=== PATIENT | male | born 1985 | race Caucasian/White ===

== ENCOUNTER 2018-05-28 08:35 | Emergency (ER) | payer MEDICAID, OTHER ==
[~2018-05-28] VITALS: Ht 175.3 cm; Wt 61.0 kg
[~2018-05-28 08:35] MED LIST: DEXL60CA3 PO; DIAZ5TAB PO; DIVA500T2 PO; IBUP-1986 PO; ONDA4TAB6 PO
[2018-05-28] MEDS ORDERED: magnesium 1gm/100ml D5W IVPB 100 ML IV ONE (08:45)
[2018-05-28] MEDS ORDERED: ondansetron/PF 4mg/2ml inj IV ONE (08:45)
[2018-05-28] MEDS ORDERED: normal saline 1000ML IV soln IVB ONE (08:45)
[2018-05-28] MEDS ORDERED: proCHLORperazine 10 MG/2 ml inj IV ONE (09:20)
[2018-05-28] MEDS ORDERED: LORazepam 2 mg/ml vial IV ONE (09:20)
[2018-05-28 09:53] LABS: CLARITY,URINE CLOUDY (Clear); COLOR,URINE YELLOW (Yellow); GLUCOSE, URINE NEGATIVE (Neg); KETONES,URINE TRACE mg/dl (Neg); LEUKOCYTE ESTERASE ,URINE NEGATIVE (Neg); NITRITES, URINE NEGATIVE (Neg); OCCULT BLOOD,URINE TRACE-INTACT (Neg); PROTEIN,URINE 30 mg/dl (Neg); UROBILINOGEN,URINE 0.2 E.U/dL (0.2-1.0)
[2018-05-28 09:54] LABS: UA COLLECTION TYPE FOLEY CATH
[2018-05-28 09:55] LABS: ALANINE AMINOTRANSFERASE 22 U/L (12-78); ALBUMIN 3.7 G/DL (3.4-5.0); ALBUMIN/GLOBULIN RATIO 1.1 (1.1-1.5); ALKALINE PHOSPHATASE 43 IU/L (46-116); ANION GAP 14 (8-16); ASPARTATE AMINO TRANSFERASE 7 U/L (10-37); BILIRUBIN,TOTAL 0.8 MG/DL (0.1-1.0); BLOOD UREA NITROGEN 12 MG/DL (7-18); CHLORIDE 107 MMOL/L (99-107); CREATINE KINASE 163 U/L (39-308); ETHANOL < 0.010 GM/DL (0.0-0.010); GLUCOSE 133 MG/DL (70-104); POTASSIUM 3.9 MMOL/L (3.5-5.1); SODIUM 141 MMOL/L (135-145); TOTAL CARBON DIOXIDE 20.5 MMOL/L (24-32)
[2018-05-28 09:59] LABS: BUN/CREATININE RATIO 10.2 (5.4-32.0); CREATININE 1.18 MG/DL (0.60-1.10); eGFR 71 ML/MIN
[2018-05-28 10:03] LABS: AMORPHOUS URATES 3+; BACTERIA,URINE FEW /HPF (Neg); MUCUS STRANDS FEW /LPF (Neg); RBC,URINE 0-2 /HPF (0-2); SQUAMOUS EPITHELIAL CELL,UR FEW /LPF (FEW); WBC,URINE 0-4 /HPF (0-4)
[2018-05-28 10:06] LABS: BASOPHILS % (AUTO) 0.1 % (0-1); EOSINOPHILS # (AUTO) 0.2 X10'3 (0-0.9); EOSINOPHILS % (AUTO) 1.4 % (0-6); HEMATOCRIT 42.7 % (42.0-52.0); HEMOGLOBIN 14.3 g/dl (14.0-17.9); LYMPHOCYTES # (AUTO) 0.8 X10'3 (1.1-4.8); LYMPHOCYTES % (AUTO) 6.6 % (21-51); MEAN CORPUSCULAR HEMOGLOBIN 29.2 PG (27.0-31.0); MEAN CORPUSCULAR HGB CONC 33.4 % (33.0-36.5); MEAN CORPUSCULAR VOLUME 87.5 FL (78-98); MEAN PLATELET VOLUME 8.3 FL (7.4-10.4); MONOCYTES # (AUTO) 0.6 X10'3 (0-0.9); MONOCYTES % (AUTO) 5.5 % (2-12); NEUTROPHILS % (AUTO) 86.4 % (42-75); PLATELET COUNT 252 X10'3 (140-440); RED BLOOD COUNT 4.88 X10'6 (4.70-6.10); RED CELL DISTRIBUTION WIDTH 14.4 % (11.5-14.5); WHITE BLOOD COUNT 11.6 X10'3 (4.5-11.0)
[2018-05-28 10:26] LABS: URINE AMPHETAMINE SCREEN NEGATIVE (Neg); URINE BARBITUATE SCREEN NEGATIVE (Neg); URINE BENZODIAZEPINES SCREEN POSITIVE (Neg); URINE CANNABINOID SCREEN POSITIVE (Neg); URINE COCAINE SCREEN NEGATIVE (Neg); URINE METHADONE SCREEN NEGATIVE (Neg); URINE OPIATE SCREEN NEGATIVE (Neg); URINE PHENCYCLIDINE SCREEN NEGATIVE (Neg)
[2018-05-28 14:25] VITALS: BP 127/72
== END 2018-05-28 14:26 | disposition home or self-care (01) ==
LOC: ER 08:35
DX: G40.909 Epilepsy, unspecified, not intractable, without status epilepticus (principal); R41.0 Disorientation, unspecified; R11.10 Vomiting, unspecified; F12.90 Cannabis use, unspecified, uncomplicated; E11.9 Type 2 diabetes mellitus without complications; Z88.8 Allergy status to other drugs, medicaments and biological substances; Z79.899 Other long term (current) drug therapy
CPT/HCPCS: 36415; 70450; 71045; 80053; 80305; 80320; 81001; 82140; 82550; 85025; 93005; 96365; 96375; 99285; A4353; J0780; J2060; J2405; J7030

== ENCOUNTER 2018-10-21 23:39 | Inpatient (IN) | payer OTHER | END 2018-10-23 15:46 | disposition home or self-care (01) | LOC: ER 23:39 → ED HOLD 10-22 03:09 → CICU 2S 10-22 04:00 ==

== ENCOUNTER 2023-02-28 11:38 | Emergency (ER) | payer MEDICAID ==
[~2023-02-28] VITALS: Ht 184.2 cm; Wt 90.0 kg
[~2023-02-28 11:38] MED LIST changes: -DEXL60CA3 PO; -DIAZ5TAB PO; -DIVA500T2 PO; -IBUP-1986 PO; +NO HOME MEDS; -ONDA4TAB6 PO
[2023-02-28] MEDS ORDERED: normal saline 1000ML IV soln IVB ONE (12:00)
[2023-02-28 12:39] LABS: BASOPHILS % (AUTO) 0.2 % (0-1); EOSINOPHILS % (AUTO) 0 % (0-6); HEMOGLOBIN 15.5 g/dl (14.0-17.9); LYMPHOCYTES % (AUTO) 7.4 % (21-51); MEAN CORPUSCULAR HEMOGLOBIN 30.3 PG (27.0-31.0); MEAN CORPUSCULAR HGB CONC 32.3 g/dL (33.0-36.5); MEAN CORPUSCULAR VOLUME 93.9 FL (78-98); MEAN PLATELET VOLUME 8.6 FL (7.4-10.4); MONOCYTES # (AUTO) 0.5 X10'3 (0-0.9); MONOCYTES % (AUTO) 3.9 % (2-12); NEUTROPHILS # (AUTO) 11.9 X10'3 (1.8-7.7); NEUTROPHILS % (AUTO) 88.5 % (42-75); PLATELET COUNT 282 X10'3 (140-440); RED BLOOD COUNT 5.11 X10'6 (4.70-6.10); RED CELL DISTRIBUTION WIDTH 15.1 % (11.5-14.5); WHITE BLOOD COUNT 13.4 X10'3 (4.5-11.0)
[2023-02-28 12:52] LABS: ALANINE AMINOTRANSFERASE 28 U/L (12-78); ALBUMIN 4.5 G/DL (3.4-5.0); ALBUMIN/GLOBULIN RATIO 1.3 (1.1-1.5); ALKALINE PHOSPHATASE 56 IU/L (46-116); ANION GAP 14 (8-16); ASPARTATE AMINO TRANSFERASE 20 U/L (10-37); BILIRUBIN,TOTAL 0.5 MG/DL (0.1-1.0); BLOOD UREA NITROGEN 11 MG/DL (7-18); BUN/CREATININE RATIO 8.3 (10.0-20.0); CHLORIDE 103 MMOL/L (99-107); CREATININE 1.32 MG/DL (0.60-1.10); ETHANOL < 0.010 GM/DL (0.0-0.010); GLUCOSE 126 MG/DL (70-104); POTASSIUM 4.1 MMOL/L (3.5-5.1); SODIUM 138 MMOL/L (135-145); TOTAL CARBON DIOXIDE 20.8 MMOL/L (24-32); TOTAL PROTEIN 8.1 G/DL (6.4-8.2); eGFR 60 ML/MIN
--- NOTE | 2023-02-28 12:56 | NUR ---
2nd reminder for patient to give urine sample, still refusing IV at this time. reminded patient to keep on SPO2 monitoring.
[2023-02-28] MEDS ORDERED: ketorolac trometh. 30mg/ml inj. IM ONE (13:15)
[2023-02-28] MEDS ORDERED: LORazepam 2 mg/ml vial IM ONE (13:15)
[2023-02-28] MEDS ORDERED: LORazepam 2 mg/ml vial ONE (13:30)
[2023-02-28] MEDS ORDERED: LORazepam 2 mg/ml vial IV ONE ×2 (13:31→14:00)
[2023-02-28] MEDS: levetiracetam 250mg tablet PO ONE ×2 (13:48→13:49)
[2023-02-28] MEDS ORDERED: levetiracetam inj 1,000 MG in normal saline 100ml IV soln 90 ML IV ONE (13:50)
[2023-02-28 13:51] LABS: URINE AMPHETAMINE SCREEN NEGATIVE (Neg); URINE BARBITUATE SCREEN NEGATIVE (Neg); URINE BENZODIAZEPINES SCREEN NEGATIVE (Neg); URINE CANNABINOID SCREEN POSITIVE (Neg); URINE COCAINE SCREEN NEGATIVE (Neg); URINE METHADONE SCREEN NEGATIVE (Neg); URINE OPIATE SCREEN NEGATIVE (Neg); URINE PHENCYCLIDINE SCREEN NEGATIVE (Neg)
[2023-02-28] MEDS ORDERED: levetiracetam inj 1,000 MG in normal saline 100ml IV soln 100 ML IV ONE (13:52)
[2023-02-28 13:58] LABS: PHENYTOIN (DILANTIN) < 0.5 UG/ML (10.0-20.0)
[2023-02-28] MEDS ORDERED: FOSphenytoin 500mg inj. 1,000 MG in normal saline 100ml IV soln 80 ML IV ONE (14:55)
[2023-02-28] MEDS ORDERED: phenytoin sod inj 1,000 MG in normal saline 100ml IV soln 80 ML IV ONE (15:30)
--- NOTE | 2023-02-28 16:22 | NUR ---
Lizzie Spears [phone]
--- NOTE | 2023-02-28 16:33 | NUR ---
Gamal notified of patient discharge, will arrive in 20 minutes
[2023-02-28 17:20] VITALS: BP 111/62
== END 2023-02-28 17:26 | disposition home or self-care (01) ==
LOC: ER 11:39
DX: G40.909 Epilepsy, unspecified, not intractable, without status epilepticus (principal); F12.90 Cannabis use, unspecified, uncomplicated; Z88.8 Allergy status to other drugs, medicaments and biological substances
CPT/HCPCS: 36415; 71045; 80053; 80185; 80305; 80320; 85025; 96365; 96367; 96372; 96375; 99284; J1165; J1953; J2060; J3490; J7030

== ENCOUNTER 2023-11-14 11:39 | Emergency (ER) | payer MEDICAID ==
[~2023-11-14] VITALS: Ht 172.7 cm; Wt 64.0 kg
[~2023-11-14 11:39] MED LIST changes: +LEVE10002 PO; -NO HOME MEDS; +PHEN100C12 PO
[2023-11-14 11:46] VITALS: PULSE 91; RESP 18; TEMP 98; O2SAT 95
== END 2023-11-14 15:33 | disposition left against medical advice (07) ==
LOC: ER 11:40
DX: R56.9 Unspecified convulsions (principal); Z53.21 Procedure and treatment not carried out due to patient leaving prior to being seen by health care provider
CPT/HCPCS: 99281; J7030

== ENCOUNTER 2024-11-06 12:23 | Inpatient (IN) | payer MEDICAID ==
[~2024-11-06] VITALS: Ht 182.9 cm; Wt 70.4 kg
[~2024-11-06 12:23] MED LIST changes: +PHEN-403 PO; -PHEN100C12 PO
[2024-11-06] MEDS ORDERED: levetiracetam inj 1,500 MG in normal saline 100ml IV soln 100 ML IV STA (13:24)
[2024-11-06] MEDS: LORazepam 2 mg/ml vial IV ONE (13:40)
[2024-11-06] MEDS: normal saline 1000ML IV soln IVB ONE (13:40)
[2024-11-06] MEDS: levetiracetamNACL 1500mg/100mL 100 ML IV STA (13:43)
[2024-11-06 14:38] LABS: ALANINE AMINOTRANSFERASE 20 U/L (12-78); ALBUMIN 4.1 G/DL (3.4-5.0); ALBUMIN/GLOBULIN RATIO 1.2 (1.1-1.5); ALKALINE PHOSPHATASE 57 IU/L (46-116); ANION GAP 13 (8-16); ASPARTATE AMINO TRANSFERASE 13 U/L (10-37); BILIRUBIN,TOTAL 0.7 MG/DL (0.1-1.0); BLOOD UREA NITROGEN 12 MG/DL (7-18); BUN/CREATININE RATIO 10.5 (10.0-20.0); CALCIUM 9.4 MG/DL (8.5-10.1); CHLORIDE 104 MMOL/L (99-107); CREATININE 1.14 MG/DL (0.60-1.10); GLUCOSE 95 MG/DL (70-104); POTASSIUM 3.6 MMOL/L (3.5-5.1); SODIUM 139 MMOL/L (135-145); TOTAL CARBON DIOXIDE 21.8 MMOL/L (24-32); TOTAL PROTEIN 7.4 G/DL (6.4-8.2); eGFR 71 ML/MIN
[2024-11-06 14:49] LABS: CREATINE KINASE 133 U/L (39-308); MAGNESIUM 1.9 MG/DL (1.5-2.4)
[2024-11-06 14:54] LABS: BASOPHILS % (AUTO) 0.3 % (0-1); EOSINOPHILS % (AUTO) 0.1 % (0-6); HEMATOCRIT 43.1 % (42.0-52.0); HEMOGLOBIN 14.3 g/dl (14.0-17.9); LYMPHOCYTES # (AUTO) 0.2 X10'3 (1.1-4.8); LYMPHOCYTES % (AUTO) 3.7 % (21-51); MEAN CORPUSCULAR HEMOGLOBIN 30.5 PG (27.0-31.0); MEAN CORPUSCULAR HGB CONC 33.1 g/dL (33.0-36.5); MEAN CORPUSCULAR VOLUME 92.2 FL (78-98); MEAN PLATELET VOLUME 8.9 FL (7.4-10.4); MONOCYTES # (AUTO) 0.8 X10'3 (0-0.9); MONOCYTES % (AUTO) 13.6 % (2-12); NEUTROPHILS # (AUTO) 4.6 X10'3 (1.8-7.7); NEUTROPHILS % (AUTO) 82.3 % (42-75); PLATELET COUNT 182 X10'3 (140-440); RED BLOOD COUNT 4.68 X10'6 (4.70-6.10); RED CELL DISTRIBUTION WIDTH 14.1 % (11.5-14.5); WHITE BLOOD COUNT 5.6 X10'3 (4.5-11.0)
[2024-11-06 14:56] LABS: ETHANOL < 10 MG/DL (<10)
[2024-11-06 15:18] LABS: URINE AMPHETAMINE SCREEN NEGATIVE (Neg); URINE BARBITUATE SCREEN NEGATIVE (Neg); URINE BENZODIAZEPINES SCREEN NEGATIVE (Neg); URINE CANNABINOID SCREEN POSITIVE (Neg); URINE COCAINE SCREEN NEGATIVE (Neg); URINE METHADONE SCREEN NEGATIVE (Neg); URINE OPIATE SCREEN NEGATIVE (Neg); URINE PHENCYCLIDINE SCREEN NEGATIVE (Neg)
[2024-11-06] MEDS ORDERED: potassium Cl 20 mEq SR tablet PO PRN ×2 (15:25)
[2024-11-06] MEDS ORDERED: mag hydrox/Alum hydrox/simeth 30ml oral suspension PO PRN (15:25)
[2024-11-06] MEDS ORDERED: magnesium hydroxide 30ml (MOM) UD suspension PO PRN (15:25)
[2024-11-06] MEDS ORDERED: potassium Cl 40MEQ/1/2NS 520ml 520 ML IV PRN (15:25)
[2024-11-06] MEDS ORDERED: LORazepam 2 mg/ml vial IV PRN (15:25)
[2024-11-06] MEDS ORDERED: magnesium sulf-water 2g/50mL 50 ML IV PRN (15:25)
[2024-11-06] MEDS ORDERED: HYDROcodone/acetaminophen 5mg/325mg tablet PO PRN (15:25)
[2024-11-06] MEDS ORDERED: magnesium sulf-water 4G/100mL 100 ML IV PRN (15:25)
[2024-11-06 17:12] LABS: LACTIC SEPSIS 1.7 MMOL/L (0.4-2.0)
[2024-11-06] MEDS: ondansetron/PF 4mg/2ml inj IV PRN (18:46)
[2024-11-06] MEDS: HYDROcodone/acetaminophen 10/325mg tab PO PRN (19:09)
[2024-11-06 19:15] VITALS: BP 110/70; RESP 18; TEMP 101.6; O2SAT 94
[2024-11-06] MEDS: K and/or MAG REPLACEMENT MC SCH (20:00)
[2024-11-06] MEDS: docusate sod 100mg capsule PO SCH (20:00)
[2024-11-06] MEDS: acetaminophen 325mg tablet PO PRN (20:02)
[2024-11-06] MEDS: levetiracetam 250mg tablet PO SCH (20:37)
[2024-11-06] MEDS: normal saline 1000ml 1,000 ML IV SCH (20:37)
[2024-11-06] MEDS: heparin, porcine 5000 units/ml vial SQ SCH (20:38)
[2024-11-06 22:00] VITALS: BP 97/53; RESP 17; TEMP 99.6; O2SAT 99
[2024-11-07] MEDS: acetaminophen 325mg tablet PO PRN (02:23)
[2024-11-07 06:00] VITALS: BP 98/69; PULSE 72; RESP 18; TEMP 99.2; O2SAT 98
[2024-11-07 07:17] LABS: BASOPHILS % (AUTO) 0.2 % (0-1); EOSINOPHILS % (AUTO) 0 % (0-6); HEMATOCRIT 41.9 % (42.0-52.0); HEMOGLOBIN 14.2 g/dl (14.0-17.9); LYMPHOCYTES # (AUTO) 0.9 X10'3 (1.1-4.8); LYMPHOCYTES % (AUTO) 23.1 % (21-51); MEAN CORPUSCULAR HEMOGLOBIN 30.8 PG (27.0-31.0); MEAN CORPUSCULAR HGB CONC 33.8 g/dL (33.0-36.5); MEAN CORPUSCULAR VOLUME 91.2 FL (78-98); MEAN PLATELET VOLUME 8.9 FL (7.4-10.4); MONOCYTES # (AUTO) 0.9 X10'3 (0-0.9); MONOCYTES % (AUTO) 22.7 % (2-12); PLATELET COUNT 184 X10'3 (140-440); RED CELL DISTRIBUTION WIDTH 14.2 % (11.5-14.5); WHITE BLOOD COUNT 3.8 X10'3 (4.5-11.0)
[2024-11-07 07:40] LABS: ALANINE AMINOTRANSFERASE 19 U/L (12-78); ALBUMIN 3.6 G/DL (3.4-5.0); ALBUMIN/GLOBULIN RATIO 1.1 (1.1-1.5); ALKALINE PHOSPHATASE 52 IU/L (46-116); ANION GAP 11 (8-16); ASPARTATE AMINO TRANSFERASE 20 U/L (10-37); BILIRUBIN,TOTAL 0.6 MG/DL (0.1-1.0); BLOOD UREA NITROGEN 9 MG/DL (7-18); BUN/CREATININE RATIO 7.8 (10.0-20.0); CALCIUM 8.5 MG/DL (8.5-10.1); CHLORIDE 105 MMOL/L (99-107); CREATININE 1.15 MG/DL (0.60-1.10); GLUCOSE 93 MG/DL (70-104); MAGNESIUM 1.8 MG/DL (1.5-2.4); POTASSIUM 3.5 MMOL/L (3.5-5.1); SODIUM 138 MMOL/L (135-145); TOTAL CARBON DIOXIDE 21.8 MMOL/L (24-32); TOTAL PROTEIN 6.9 G/DL (6.4-8.2); eCRCL 84 ML/MIN; eGFR 70 ML/MIN
[2024-11-07 08:32] LABS: PLATELET ESTIMATE NORMAL; TOTAL CELLS COUNTED 100
[2024-11-07 10:00] VITALS: BP 100/68; PULSE 68; RESP 9; TEMP 98.8; O2SAT 98
[2024-11-07] MEDS: valproic acid 250mg capsule PO ONE (10:41)
[2024-11-07 10:54] LABS: FREE T4 (FREE THYROXINE) 1.01 NG/DL (0.73-1.40)
[2024-11-07 10:57] LABS: THYROID STIMULATING HORMONE 0.45 ulU/ml (0.34-4.50)
[2024-11-07] MEDS: valproic acid 250mg capsule PO SCH (16:30)
[2024-11-07 18:30] VITALS: BP 122/79; PULSE 71; RESP 16; TEMP 99.5; O2SAT 98
[2024-11-07 22:00] VITALS: BP 97/63; PULSE 68; RESP 19; TEMP 98.3; O2SAT 93
[2024-11-08 06:00] VITALS: BP 123/69; PULSE 76; RESP 18; TEMP 98.4; O2SAT 91
[2024-11-08 06:31] LABS: HEMOGLOBIN 14.9 g/dl (14.0-17.9); LYMPHOCYTES % (AUTO) 39.2 % (21-51); MEAN CORPUSCULAR HEMOGLOBIN 30.8 PG (27.0-31.0); MONOCYTES # (AUTO) 0.5 X10'3 (0-0.9); NEUTROPHILS # (AUTO) 1.6 X10'3 (1.8-7.7); RED BLOOD COUNT 4.83 X10'6 (4.70-6.10)
[2024-11-08 06:35] LABS: BASOPHILS % (AUTO) 0.6 % (0-1); EOSINOPHILS % (AUTO) 0.1 % (0-6); HEMATOCRIT 44.1 % (42.0-52.0); LYMPHOCYTES # (AUTO) 1.3 X10'3 (1.1-4.8); MEAN CORPUSCULAR HGB CONC 33.7 g/dL (33.0-36.5); MEAN CORPUSCULAR VOLUME 91.3 FL (78-98); MEAN PLATELET VOLUME 8.9 FL (7.4-10.4); MONOCYTES % (AUTO) 13.9 % (2-12); NEUTROPHILS % (AUTO) 46.2 % (42-75); PLATELET COUNT 162 X10'3 (140-440); RED CELL DISTRIBUTION WIDTH 13.9 % (11.5-14.5); WHITE BLOOD COUNT 3.4 X10'3 (4.5-11.0)
[2024-11-08 06:54] LABS: ALANINE AMINOTRANSFERASE 22 U/L (12-78); ALBUMIN 3.4 G/DL (3.4-5.0); ALKALINE PHOSPHATASE 46 IU/L (46-116); ANION GAP 9 (8-16); ASPARTATE AMINO TRANSFERASE 16 U/L (10-37); BILIRUBIN,TOTAL 0.4 MG/DL (0.1-1.0); BLOOD UREA NITROGEN 8 MG/DL (7-18); BUN/CREATININE RATIO 6.5 (10.0-20.0); CALCIUM 8.3 MG/DL (8.5-10.1); CHLORIDE 104 MMOL/L (99-107); CREATININE 1.23 MG/DL (0.60-1.10); GLUCOSE 110 MG/DL (70-104); MAGNESIUM 1.8 MG/DL (1.5-2.4); POTASSIUM 3.6 MMOL/L (3.5-5.1); SODIUM 139 MMOL/L (135-145); TOTAL CARBON DIOXIDE 25.7 MMOL/L (24-32); TOTAL PROTEIN 6.9 G/DL (6.4-8.2); eCRCL 79 ML/MIN; eGFR 65 ML/MIN
[2024-11-08 07:30] VITALS: RESP 18; O2SAT 91
[2024-11-08 10:00] VITALS: BP 102/59; PULSE 53; RESP 14; TEMP 97.9; O2SAT 98
[2024-11-08] MEDS: GADOTERATE MEGLUMINE 7.5 MMOL/15 ML VIAL IV ONE (16:03)
[2024-11-08] MEDS ORDERED: VALP250C44 PO (17:39)
[2024-11-08] MEDS ORDERED: LEVE250T PO (17:39)
== END 2024-11-08 19:14 | disposition home or self-care (01) | DRG 53 ==
LOC: ER 12:25 → ED HOLD 15:32 → ORTHO 4S 19:37
PROVIDERS: ADMIT Nurse Practitioner Family; ATTEND Nurse Practitioner Family
PROC: 4A00X4Z Measurement of Central Nervous Electrical Activity, External Approach (ICD-10-PCS; principal; 2024-11-07)
DX: G40.901 Epilepsy, unspecified, not intractable, with status epilepticus (principal); E11.9 Type 2 diabetes mellitus without complications; F41.0 Panic disorder [episodic paroxysmal anxiety]; Z79.899 Other long term (current) drug therapy; Z88.8 Allergy status to other drugs, medicaments and biological substances
CPT/HCPCS: 36415; 70450; 70553; 71045; 80053; 80177; 80305; 80320; 82140; 82550; 82607; 83605; 83735; 83874; 84145; 84146; 84439; 84443; 85007; 85025; 87081; 95816; 97161; 97530; 99285; A4615; A6250; G0378; J1644; J1953; J2060; J2405; J7030

== ENCOUNTER 2024-12-29 14:17 | Emergency (ER) | payer MEDICAID ==
[~2024-12-29] VITALS: Ht 182.9 cm; Wt 63.1 kg
[~2024-12-29 14:17] MED LIST changes: -LEVE10002 PO; +LEVE250T PO; -PHEN-403 PO; +VALP250C44 PO
[2024-12-29] MEDS ORDERED: LEVE250T PO (15:20)
[2024-12-29] MEDS ORDERED: VALP250C44 PO (15:20)
[2024-12-29] MEDS: levetiracetam 250mg tablet PO ONE (16:25)
[2024-12-29 16:29] VITALS: BP 131/80; PULSE 74; RESP 15; TEMP 97.8; O2SAT 99
== END 2024-12-29 16:34 | disposition home or self-care (01) ==
LOC: ER 14:18
DX: F43.10 Post-traumatic stress disorder, unspecified (principal); Z76.0 Encounter for issue of repeat prescription; E11.9 Type 2 diabetes mellitus without complications; F12.90 Cannabis use, unspecified, uncomplicated
CPT/HCPCS: 99284

== ENCOUNTER 2025-02-14 14:03 | Inpatient (IN) | payer MEDICAID ==
[~2025-02-14] VITALS: Ht 182.9 cm; Wt 66.8 kg
[2025-02-14] MEDS: diazepam inj 5 MG/ML inj. ONE (14:22)
[2025-02-14] MEDS: midazolam 1 mg/ML 2ml injection IV ONE (14:22)
[2025-02-14] MEDS: LORazepam 2 mg/ml vial ONE (14:23)
[2025-02-14] MEDS: LORazepam 2 mg/ml vial IV ONE ×2 (14:24→17:29)
[2025-02-14] MEDS: diazepam inj 5 MG/ML inj. IM ONE (14:24)
[2025-02-14] MEDS: levetiracetam-NACL1000mg/100ml 100 ML IV SCH (14:37)
--- NOTE | 2025-02-14 14:42 | ELECTROCARDIOGRAPH REPORT ---
[facility] Test Date: 2025-02-14 Test Time: 14:34:12 Pat Name: CHINA SANDERS Department: EMERGENCY ROOM Room: ED 3 Gender: M Machine Umbrella Tipper: nohemi : 1985 Requested By: JAMES CAVAZOS Order Number: [id number] Reading MD: Dr. Derek Mishra Measurements Intervals [place] Rate: 147 P: 87 [place]: 130 QRS: 66 QRSD: 84 T: 68 QT: 270 QTc: 423 Interpretive Statements Age not entered, assumed to be 48 years old for purpose of ECG interpretation Sinus tachycardia Ventricular premature complex Probable left atrial enlargement Anteroseptal infarct, old Electronically Signed On 02-14-2025 18:29:[address] Derek Mishra Please click the below link to view image of tracing.
[2025-02-14 14:49] LABS: BASOPHILS # (AUTO) 0.1 X10'3 (0-0.2); BASOPHILS % (AUTO) 0.3 % (0-1); EOSINOPHILS % (AUTO) 0 % (0-6); HEMATOCRIT 49.9 % (42.0-52.0); LYMPHOCYTES # (AUTO) 1.3 X10'3 (1.1-4.8); LYMPHOCYTES % (AUTO) 6.1 % (21-51); MEAN CORPUSCULAR HEMOGLOBIN 30.4 PG (27.0-31.0); MEAN CORPUSCULAR HGB CONC 32.1 g/dL (33.0-36.5); MEAN CORPUSCULAR VOLUME 94.7 FL (78-98); MONOCYTES # (AUTO) 1.2 X10'3 (0-0.9); MONOCYTES % (AUTO) 5.6 % (2-12); NEUTROPHILS # (AUTO) 18.6 X10'3 (1.8-7.7); PLATELET COUNT 381 X10'3 (140-440); RED BLOOD COUNT 5.28 X10'6 (4.70-6.10); RED CELL DISTRIBUTION WIDTH 15.6 % (11.5-14.5); WHITE BLOOD COUNT 21.2 X10'3 (4.5-11.0)
[2025-02-14] MEDS: normal saline 1000ml 1,000 ML IV ONE (15:11)
[2025-02-14] MEDS: ringers solution, lacted 1,000 ML IV ONE (15:11)
[2025-02-14 15:12] LABS: ALANINE AMINOTRANSFERASE 24 U/L (12-78); ALBUMIN 4.8 G/DL (3.4-5.0); ALBUMIN/GLOBULIN RATIO 1.3 (1.1-1.5); ALKALINE PHOSPHATASE 69 IU/L (46-116); ANION GAP 23 (8-16); ASPARTATE AMINO TRANSFERASE 32 U/L (10-37); BILIRUBIN,TOTAL 1.4 MG/DL (0.1-1.0); BLOOD UREA NITROGEN 16 MG/DL (7-18); BUN/CREATININE RATIO 10.1 (10.0-20.0); CALCIUM 10.3 MG/DL (8.5-10.1); CHLORIDE 104 MMOL/L (99-107); CREATININE 1.58 MG/DL (0.60-1.10); GLUCOSE 126 MG/DL (70-104); POTASSIUM 4.8 MMOL/L (3.5-5.1); SODIUM 146 MMOL/L (135-145); TOTAL CARBON DIOXIDE 19.2 MMOL/L (24-32); TOTAL PROTEIN 8.5 G/DL (6.4-8.2); eCRCL 58 ML/MIN; eGFR 49 ML/MIN
--- NOTE | 2025-02-14 15:17 | RADIOLOGY REPORT ---
CHEST RADIOGRAPH Indication: CP Technique: Single frontal view of the chest was obtained Comparison: DI CHEST,SINGLE VIEW on DOS: 11/06/24, DI CHEST,SINGLE VIEW on DOS: 07/30/23, DI CHEST,SIN GLE VIEW on DOS: 07/29/23 FINDINGS: Lines and Tubes: None Lungs: No focal consolidation. Pleura: No effusion. No pneumothorax. Cardiomediastinal contours: Unremarkable Bones: No acute osseous abnormality. IMPRESSION: No acute cardiopulmonary disease.
[2025-02-14 15:19] LABS: CREATINE KINASE 732 U/L (39-308); PRO BRAIN NATRIURETIC PEPTIDE 38 PG/ML (0-125)
[2025-02-14] MEDS: diphenhydrAMINE 50 mg/ml inj IV ONE ×2 (15:43→17:28)
--- NOTE | 2025-02-14 15:52 | Physician Documentation ---
History of Present Illness ~ Chief Complaint: Seizure Stated Complaint: SZ Time Seen by MD: 14:48 OK to notify your PCP?: Yes Primary Medical Doctor: DORIS NOLAN Mode of Arrival: EMS HPI 39-year-old patient with a history of seizure disorder on Keppra was brought to the emergency room by ambulance because of seizure activities no times today at home and then started seizing in the ED. therefore patient was immediately treated with a benzodiazepine. He did not have any IV so we initially given diazepam 10 mg IM and then IV was established and he was given 4 mg of Ativan. Then his seizure broke and he was in deep confused post ictal state. Patient get 1000 g of Keppra intravenously . He also received 4 mg of Versed intravenously and Benadryl 50 mg IV. The story from the EMS is that the patient been compliant with Keppra and antiseizure medication and about 2 to 3 days prior to this ER visit patient has started using mushroom and stopped taking antiseizure medications. Apparently he has must be taking some mushroom. Street mushroom overdose can cause seizure on itself. I reviewed his past medical history in EMR and found that he has been to the emergency room for seizure activities numerous time and at one point of time he got intubated for status epilepticus. Medication Reconciliation Allergies: Coded Allergies: methylphenidate HCl (Verified Allergy, Unknown, "MY GROWTH WAS STUNTED", 12/29/24) Uncoded Allergies: CIG. SMOKE (Allergy, Severe, "ANAPHYLACTIC SHOCK"., 09/13/14) Scheduled Aripiprazole (Aripiprazole), 1 TAB PO HS, (Reported) Levetiracetam (Levetiracetam), 1,000 MG PO TID Discontinued Medications Valproic Acid (Valproic Acid), 500 MG PO Q8H Discontinued Reason: patient no longer taking Past Medical History Past Medical History: Seizures, *GI/HEPATOBILIARY*, Inflammatory Bowel Dz, Diabetes, Panic Disorder Past Surgical History: no surgical history Alcohol Use: Occasionally Drug Use: marijuana Lives with: Family Lives In: Home Occupation: student Review of Systems ROS As stated above in the HPI, otherwise all systems are reviewed and negative. Physical Exam Vital Signs: Source: Oral, Heart Rate: 136, Respiratory Rate: 25, BP: 121/64, Pulse Oximetry: 100, Weight: 66.820 Oxygen Flow Rate: 15.0 Physical Exam Reviewed vital signs and been monitoring vital signs throughout the emergency room care. Patient's heart rate is coming down now to 108 initially he was at 160 sinus tachy. Const: seizing condition as well as Postictal state Head: Atraumatic Eyes: Normal Conjunctiva ENT: Normal External Ears, Nose and Mouth. Moist mucous membranes Neck: Full range of motion. No meningismus Resp: Clear to auscultation bilaterally. Normal work of breathing Cardio: Regular rate and rhythm, no murmurs. Skin well perfused Abd: Soft, non-tender, non-distended. Normal bowel sounds. No rebound or guarding Skin: No petechiae or rashes. Warm and dry Back: No midline or flank tenderness Ext: No cyanosis, or edema Neuro: Postictal Psych: Deferred Progress Results/Orders Results/Orders Orders - JAMES CAVAZOS MD Chest,Single View (02/14/25 14:40) Monitor (02/14/25 14:40) Saline Lock (02/14/25 14:40) Oxygen (02/14/25 14:40) Electrocardiogram (02/14/25 14:40) Non-Behavioral Restraints (02/14/25 14:53) Levetiracetam, S (02/14/25 15:48) Page Hospitalist (02/14/25 16:03) Completed Orders - JAMES CAVAZOS MD Midazolam 1 Mg/Ml 2ml Inj. (Versed 1 Mg/ (02/14/25 14:20) Diazepam Inj (Valium Inj) (02/14/25 14:20) Lorazepam Inj (Ativan Inj) (02/14/25 14:25) Levetiracetam-[id number]/100ml (Levetira (02/14/25 20:00) Levetiracetam-[id number]/100ml (Levetira (02/14/25 14:31) Chest,Single View (02/14/25 14:40) Cbc/Diff (02/14/25 14:40) PBNP (02/14/25 14:40) Electrocardiogram (02/14/25 14:40) CMP (02/14/25 14:40) Hs Troponin I W Calculations (02/14/25 14:40) Hs Troponin I W Calculations (02/14/25 16:40) Hs Troponin I W Calculations (02/14/25 17:40) CK (02/14/25 14:22) Normal Saline 1000ml (Sodium Chloride 10 (02/14/25 15:10) Ringers Solution, Lacted (Lactated Ringe (02/14/25 15:10) Lorazepam Inj (Ativan Inj) (02/14/25 15:20) Diphenhydramine Inj (Benadryl Inj.) (02/14/25 15:40) Levetiracetam-Nacl 500mg/100ml (Levetira (02/14/25 20:00) Drug Screen, Urine (02/14/25 15:54) Normal Saline 1000ml (Sodium Chloride 10 (02/14/25 15:55) Vital Signs 02/14/25 02/14/25 02/14/25 02/14/25 14:12 14:50 15:10 15:23 Pulse 143 133 136 Resp 16 28 25 B/P (MAP) 123/73 156/131 (139) 121/64 (83) Pulse Ox 98 97 99 100 O2 Delivery Non-Rebreather O2 Flow Rate 16 15.0 15.0 FiO2 N/A N/A N/A 02/14/25 02/14/25 16:00 16:00 Pulse 101 Resp 20 21 B/P (MAP) 104/78 (87) Pulse Ox 99 O2 Flow Rate 15.0 FiO2 N/A Laboratory Tests Test 02/14/25 03:19 02/14/25 14:22 Hemoglobin A1c 5.1 White Blood Count 21.2 H Red Blood Count 5.28 Hemoglobin 16.0 Hematocrit 49.9 Mean Corpuscular Volume 94.7 Mean Corpuscular Hemoglobin 30.4 Mean Corpuscular Hemoglobin Concent 32.1 L Red Cell Distribution Width 15.6 H Platelet Count 381 Mean Platelet Volume 9.0 Neutrophils (%) (Auto) 88.0 H Lymphocytes (%) (Auto) 6.1 L Monocytes (%) (Auto) 5.6 Eosinophils (%) (Auto) 0 Basophils (%) (Auto) 0.3 Neutrophils # (Auto) 18.6 H Lymphocytes # (Auto) 1.3 Monocytes # (Auto) 1.2 H Eosinophils # (Auto) 0.0 Basophils # (Auto) 0.1 CBC Comment Sodium Level 146 H Potassium Level 4.8 Chloride Level 104 Carbon Dioxide Level 19.2 L Anion Gap 23 H Blood Urea Nitrogen 16 Creatinine 1.58 H Estimated GFR/1.73 m2 49 BUN/Creatinine Ratio 10.1 Glucose Level 126 H Calcium Level 10.3 H Total Bilirubin 1.4 H Aspartate Amino Transf (AST/SGOT) 32 Alanine Aminotransferase (ALT/SGPT) 24 Alkaline Phosphatase 69 Total Creatine Kinase 732 H Troponin I High Sensitivity 23 Pro-B-Type Natriuretic Peptide 38 Total Protein 8.5 H Albumin 4.8 Globulin 3.7 Albumin/Globulin Ratio 1.3 Chemistry Comments Medical Decision Making Findings Patient was having active tonic-clonic seizure that needs to be immediately treated. Before we got the intravenous access the patient was given diazepam 10 mg IM and after that the patient was given Ativan 4 mg IV and Keppra 1 g IV and then Versed 4 mg IV. Benadryl 50 mg intravenously was given as well. He was hydrated aggressively as well. As we were controlling the seizure activities we are preferred to intubate him should his respiration depressed and unable to bear to protect airway as well as should the seizure does not break and continued. Patient will be admitted to the hospital for further evaluation and treatment. Lab results CBC WBC 21.2 and H and H 16 and 49.9 with platelets 381. Sodium 146 potassium four point eight chloride 104 bicarb 19.4 BUN 16 creatinine 1.58 and glucose 126. CK is 732. Troponin 23 BNP 38. Chest x-ray is unremarkable. EKG done at is 14:34 hours shows sinus tachy at a rate of 147. No ischemic changes. CRITICAL CARE TIME: [50 ] minutes Treatments/Evaluations: Close monitoring and treatment of unstable vital signs, cardiorespiratory, and neurologic status, while maintaining tight balance of fluid, respiratory, and cardiac interventions. This time includes discussing the case with the patient and the patients family. This time does not include all procedures stated elsewhere in this record. This time also includes reviewing old records, labs and radiological studies. This time includes examining and re-examining the patient. Additionally, this time also includes arranging care with admitting and consulting physicians. Departure Disposition: ADMITTED INPATIENT Impression: Primary Impression: Seizure disorder Additional Impression: Substance abuse Referrals: NO PRIMARY CARE PROVIDER (PCP) Signature Scribe Signature: x Attestation: JAMES Hauser MD February 14, 2025 15:52
[2025-02-14] MEDS: normal saline 1000ml 1,000 ML IV SCH (16:22)
[2025-02-14] MEDS: acetaminophen 1,000mg/100ml IV 100 ML IV ONE (16:58)
[2025-02-14 17:14] LABS: BILIRUBIN,URINE NEGATIVE (Neg); CLARITY,URINE CLEAR (Clear); COLOR,URINE YELLOW (Yellow); GLUCOSE, URINE NEGATIVE (Neg); KETONES,URINE TRACE mg/dl (Neg); LEUKOCYTE ESTERASE ,URINE NEGATIVE (Neg); NITRITES, URINE NEGATIVE (Neg); OCCULT BLOOD,URINE SMALL (Neg); PROTEIN,URINE NEGATIVE (Neg); UROBILINOGEN,URINE 0.2 E.U/dL (0.2-1.0)
[2025-02-14 17:20] LABS: UA COLLECTION TYPE VOIDED
[2025-02-14 17:21] LABS: BACTERIA,URINE NONE SEEN /HPF (Neg); MUCUS STRANDS NONE SEEN /LPF (Neg); RBC,URINE 0-2 /HPF (0-2); SQUAMOUS EPITHELIAL CELL,UR NONE SEEN /LPF (FEW); URIC ACID CRYSTALS 2+ /HPF (NEGATIVE); WBC,URINE NONE SEEN /HPF (0-4)
[2025-02-14 17:33] LABS: URINE AMPHETAMINE SCREEN NEGATIVE (Neg); URINE BARBITUATE SCREEN NEGATIVE (Neg); URINE BENZODIAZEPINES SCREEN POSITIVE (Neg); URINE CANNABINOID SCREEN POSITIVE (Neg); URINE COCAINE SCREEN POSITIVE (Neg); URINE METHADONE SCREEN NEGATIVE (Neg); URINE OPIATE SCREEN NEGATIVE (Neg); URINE PHENCYCLIDINE SCREEN NEGATIVE (Neg)
--- NOTE | 2025-02-14 17:41 | HISTORY AND PHYSICAL-Residence ---
History & Physical Providers to CC Resident Creating Document: KARON CHÁVEZ RES ~ History of Present Illness Primary Medical Doctor: DORIS NOLAN Reason for Admit\\Complaint: Seizures History of Present Illness 39-year-old male patient with a past medical history of epilepsy presents to the hospital due to multiple seizures occurring today. Girlfriend at bedside and provided most of the history as the patient was drowsy from the seizures and medical management. Symptoms followed after he went out yesterday, used mushrooms and drank a couple of beers; and also missed his nighttime Keppra. Today morning, he ceased about 5 times since 6:30 a.m. to 1:00 p.m.. Reports of return of consciousness in between the episodes but confusion persisted. Seizures associated with loss of bowel and bladder continence. Girlfriend denies any trauma to the head. He has a prior history of similar breakthrough seizures secondary to alcohol or drugs. As per the girlfriend, he takes 1000 mg Keppra twice a day. Does not have any outpatient neurology follow up. Allergies: Coded Allergies: methylphenidate HCl (Verified Allergy, Unknown, "MY GROWTH WAS STUNTED", 12/29/24) Uncoded Allergies: CIG. SMOKE (Allergy, Severe, "ANAPHYLACTIC SHOCK"., 09/13/14) Home Medications Home Medications Active Valproic Acid 250 Mg Capsule 500 Mg PO Q8H 30 Days Levetiracetam 250 Mg Tablet 1,000 Mg PO TID 30 Days Past Medical History Past Medical History Epilepsy Past Surgical History Surgical History Comment None Past Social History Social History Comment Smokes marijuana. Occasional alcohol use. Lives at home with his girlfriend. Smoking: Non-Smoker Alcohol Use: Occasionally Drug Use: Marijuana Lives with: Family Lives In: Home Occupation: student ROS ROS Unable to be obtained Exam Vitals: Vital Signs Date Time Temp Pulse Resp B/P (MAP) Pulse Ox O2 Delivery O2 Flow Rate FiO2 02/14/25 17:14 100 20 104/78 (87) 99 15.0 02/14/25 16:24 101.1 N/A 02/14/25 14:50 Non-Rebreather General: General: Drowsy, confused and irritable HEENT: Conjunctiva pink, Sclera clear, Mucus Membranes moist. Resp: Unlabored. Lungs clear to auscultation bilaterally. Heart: Sinus tachycardia, normal S1 and S2 without murmur, rub or gallop. Abdomen: Soft and non tender no organomegaly Extremities: No cyanosis,clubbing or edema. Skin: Warm and Dry. Diagnostic Data Last Recorded Lab Results: 02/14/25 1422 02/14/25 1422 Counseling Services Smoking & Tobacco Cessation: N/A Advance Care Planning Advanced Care planning: N/A Additional Plan 1. Seizures: Breakthrough secondary to drug use Unable to evaluate if status epilepticus as duration unrecorded History of epilepsy Metabolic acidosis with elevated anion gap secondary to seizures ER course: 10 mg IM Valium, 4 mg Ativan IV. Seizure broke. IV Keppra to total dose of 1500 mg given. 4 mg IV Versed and Benadryl 50 mg also given to reduce agitation. - continue Keppra 1000 mg b.i.d. -Ativan q.4 PRN; Valium can be used if failure to control with Ativan - tele neurology consult placed; we will await recommendations - urine tox positive for cocaine and cannabis - reactive leukocytosis, and JOSHUA likely secondary to above. Elevated CK, urine color yellow. Mildly elevated lactic acidosis. Continue IV fluid resuscitation - uses marijuana at home which could be protective against seizures; cessation advice not provided - agitation controlled with Benadryl/benzodiazepine - Seizure precautions, fall precautions and aspiration precautions placed - BSS eval for diet 2. JOSHUA: Likely secondary to ATN Urinalysis reveals no RBC or change in color Mildly elevated CK secondary to the seizure activity Continue IV fluid resuscitation at a rate of 200 cc/hour; reduce IV fluids rate tomorrow after repeat labs Continue monitoring urine output 3. Reactive leukocytosis: Febrile episodes secondary to seizure WBC 21.2 Continue IV fluid resuscitation and IV Tylenol p.r.n. q.8 hours for fever Monitor CBC 4. Substance abuse disorder: Urinalysis positive for cocaine Substance abuse navigator consulted Lines: PIV Code status: Full code; unable to receive information from the patient directly Diet: RONALD Chávez PGY2, Internal medicine resident Date of Service: February 14, 2025 Billing Provider: OLMAN AYON MD Common Visit Codes: 06565-CQSIKUE INP/OBS CARE (HIGH) Secondary Visit Codes: 16497-[id number] CARE PLAN 30 MINUTES KARON CHÁVEZ, RES February 14, 2025 17:41 OLMAN AYON MD February 15, 2025 21:00
[2025-02-14] MEDS: CefTRIAXone 2gm/D5W 50ml BAG 50 ML IV ONE (17:47)
[2025-02-14 19:15] VITALS: BP 111/67; PULSE 97; RESP 22; TEMP 99.7; O2SAT 98
[2025-02-14] MEDS ORDERED: levetiracetam-NACL1000mg/100ml 100 ML IV SCH (20:00)
[2025-02-14] MEDS ORDERED: Levetiracetam-NACL 500mg/100ml 100 ML IV ONE (20:00)
[2025-02-14] MEDS ORDERED: ARIP10TA87 PO (20:02)
--- NOTE | 2025-02-14 21:57 | CONSULTATION REPORT ---
History of Present Illness Providers to CC ~ Reason for Admit\\Admit Dx: Seizures Refering MD: PARVEEN/ AN Allergies: Coded Allergies: methylphenidate HCl (Verified Allergy, Unknown, "MY GROWTH WAS STUNTED", 12/29/24) Uncoded Allergies: CIG. SMOKE (Allergy, Severe, "ANAPHYLACTIC SHOCK"., 09/13/14) Home Medications Home Medications Active Levetiracetam 250 Mg Tablet 1,000 Mg PO TID 30 Days Reported Aripiprazole 10 Mg Tablet 1 Tab PO HS Physical Exam Last Vital Signs Recorded: Temperature: 99.7, Source: Axillary, Heart Rate: 97, Respiratory Rate: 22, BP: 111/67, Pulse Oximetry: 98, Weight: 66.820 Results Diagram Lab Result Diagram: 02/14/25 1422 02/14/25 142 Assessment/Plan Additional Plan [place] Neuro Note # Demographics Consult Type: General Neurology Patient Location: Emergency Room First Name: CHINA Last Name: MARILYN Date of : 1985 Age: 39 Gender: Male Facility: [facility] Time of Initial Page ([place] Time): 02/14/2025 17:19 Time of Return Call ([place] Time): 02/14/2025 17:20 # HPI History: 39yo with history of seizures on Keppra and Depakote, stopped his meds a few days ago, then used mushrooms and had a breakthrough seizure. Rec loading with Keppra one gram and restarting his home dose of Keppra and Depakote # Plan Other: - If patient has any neurological deterioration please call back immediately # Demographics First Name: CHINA Last Name: MARILYN Facility: [facility] BONG ELLIS Jr., MD February 14, 2025 21:57
[2025-02-14 22:00] VITALS: BP 106/67; PULSE 96; RESP 16; TEMP 98.8; O2SAT 100
[2025-02-15] MEDS: dextrose 50%-water 50ml dispensing syringe IV ONE (03:22)
[2025-02-15 06:00] VITALS: BP 101/54; PULSE 102; RESP 19; TEMP 99.4; O2SAT 97
[2025-02-15] MEDS: LORazepam 2 mg/ml vial IV PRN (08:13)
[2025-02-15] MEDS: ibuprofen 200mg tablet PO PRN (10:00)
[2025-02-15] MEDS ORDERED: valproic acid 250mg capsule PO SCH (16:00)
--- NOTE | 2025-02-15 16:26 | DISCHARGE SUMMARY-Residence ---
Discharge Summary Providers to CC Resident Creating Document: SAIRAKIRAJASESTELLE BLANK ~ Discharge Summary Admission Diagnosis: Seizures Hospital Course DATE OF ADMISSION: 02/14/2025 DATE OF DISCHARGE: 02/15/2025 ([facility]) Discharge Diagnosis\Comment: Acute breakthrough seizures, PMH of epilepsy Hypoxia induced lactic acidosis Left against medical advice Operations\Procedures: None Consultants: Tele neurology Complications: None Condition on DC: Unstable New Medications: Valproic Acid (Valproic Acid) 250 Mg Capsule 750 MG PO Q8H for 90 Days, #120 CAP Continued Medications: Aripiprazole (Aripiprazole) 10 Mg Tablet 1 TAB PO HS Levetiracetam (Levetiracetam) 250 Mg Tablet 1000 MG PO TID for 30 Days, #90 TAB Discharge Summary: 39-year-old male patient with a past medical history of epilepsy presents to the hospital after suffering from multiple episodes of seizures throughout the day. He had about five episodes of seizure starting from 6:30 a.m. on the day of presentation to 1:00 p.m. with intermittent waking up in between the seizure episodes. As per urinalysis and history, the patient abused alcohol, cocaine and mushrooms the night before along with missing his nighttime Keppra leading to the breakthrough seizure. His initial seizure was relieved by benzos and then he was started on Keppra drip. Review of EMR reveals that the patient was actually discharged on Keppra a 1000 mg t.i.d. which he has been compliant with the but has not taken the valproic acid that he was discharged with. He remained drowsy and confused overnight. Complained of headaches. Around the afternoon time, he was awake, alert and oriented x4 and left AMA. All instructions including risks of seizures, risks of noncompliance with medications and risk of recurrent breakthrough seizures as such. Patient was in full understanding of the condition prior to discharge. Medications at discharge: Valproic acid 750 mg q.8 hours, Keppra 1000 mg t.i.d. Labs at discharge: WBC 21.2, RBC 5.2, platelet 381 Sodium 146, potassium 4.8, chloride 104, BUN 16, creatinine 1.5, blood glucose 126, AST 32, ALT 24, alkaline phosphatase 69 *Problems/Diagnosis: (1) Seizure disorder Status: Acute Total Time Spent on D/C: Up to 30 Minutes Date of Service: February 15, 2025 Billing Provider: OLMAN AYON MD Common Visit Codes: 80891-VMO/OBS DISCH DAY >30min KARON CHÁVEZ, RES February 15, 2025 16:02 OLMAN AYNO MD February 15, 2025 21:01
[2025-02-15] MEDS ORDERED: levetiracetam 250mg tablet PO SCH (21:00)
== END 2025-02-15 12:51 | disposition left against medical advice (07) | DRG 53 ==
LOC: ER 14:04 → ED HOLD 16:22 → ORTHO 4S 19:06
PROVIDERS: ADMIT Internal Medicine; ATTEND Internal Medicine
DX: G40.909 Epilepsy, unspecified, not intractable, without status epilepticus (principal); N17.9 Acute kidney failure, unspecified; E87.20 Acidosis, unspecified; Z53.29 Procedure and treatment not carried out because of patient's decision for other reasons; F14.10 Cocaine abuse, uncomplicated; E11.9 Type 2 diabetes mellitus without complications
CPT/HCPCS: 36415; 71045; 80053; 80177; 80305; 81001; 82550; 82948; 83036; 83605; 83880; 84484; 85025; 87040; 87081; 92508; 92616; 93005; 99291; A4349; C1758; G0378; J0131; J0696; J1200; J1953; J2060; J2250; J3360; J3490; J7030; J7120

== ENCOUNTER 2025-04-19 08:26 | Outpatient (CLI) | payer MEDICAID ==
[~2025-04-19 08:26] MED LIST changes: +ARIP10TA87 PO; -VALP250C44 PO
--- NOTE | 2025-04-19 11:17 | RADIOLOGY REPORT ---
PROCEDURE: MR MRI HEAD INDICATION: EPILEPSY EXAM DATE: 04/19/2025 09:10 AM COMPARISON: MR MRI HEAD on DOS: 11/07/24, CT CT HEAD on DOS: 11/06/24, CT CT HEAD on DOS: 07/27/23 TECHNIQUE: MRI of the brain without intravenous contrast. Seizure protocol. FINDINGS: Diffusion weighted images of the brain demonstrate no evidence of acute infarction. There is no evidence of acute intracranial hemorrhage, extra-axial collection, mass effect, midline s hift, herniation or hydrocephalus. The ventricles, sulci and cisterns appear age appropriate. The signal intensities of the brain parenchyma are within normal limits. There are no signal abnormalities on the susceptibility weighted sequences. The major vascular flow voids are present. The visualized paranasal sinuses and mastoid air cells are clear. The surrounding soft tissues and o sseous structures are unremarkable. IMPRESSION: 1. No evidence of acute infarction, intracranial hemorrhage, mass effect or hydrocephalus. Mesial tem poral sclerosis. HS:Y
== END 2025-04-19 23:59 | disposition home or self-care (01) ==
LOC: MRI02 08:26
PROVIDERS: ATTEND Physician Assistant
DX: G40.909 Epilepsy, unspecified, not intractable, without status epilepticus (principal)
CPT/HCPCS: 70551

== ENCOUNTER 2025-07-20 10:56 | Inpatient (IN) | payer MEDICAID ==
[~2025-07-20] VITALS: Ht 177.8 cm; Wt 72.0 kg
[2025-07-20] VITALS (13 sets, daily range): BP systolic 95–172; BP diastolic 39–110; PULSE 41–87; RESP 17–22; TEMP 100.2; O2SAT 97–100
--- NOTE | 2025-07-20 11:08 | Physician Documentation ---
Addendum CHIEF COMPLAINT/HPI: The patient is a 40-year-old male with a history of epilepsy, polysubstance a buse, noncompliance who was noted to be postictal upon the arrival of EMS at his home after they were summoned shortly prior to coming here. Shortly thereafter, during transport, the patient became agitated. REVIEW OF SYSTEMS: Postictal patient, unable to obtain PHYSICAL EXAMINATION: Vitals and nursing note reviewed. Constitutional: General: Patient appears postictal and is nonverbal and agitated Appearance: Agitated. HENT: Head: Normocephalic and atraumatic. Mouth/Throat: Dried blood noted Mouth: Mucous membranes are moist. Eyes: General: No scleral icterus. Extraocular Movements: Extraocular movements intact. Pupils: Pupils are equal, round, and reactive to light. Neck: Supple, no Kernig or Brudzinski sign. Cardiovascular: Rate and Rhythm: Normal rate and regular rhythm. Heart sounds: No murmur heard. Pulmonary: Effort: No respiratory distress. Breath sounds: No wheezing, rhonchi or rales. Abdominal: General: There is no distension. Palpations: There is no fluid wave, hepatomegaly or mass. Tenderness: There is no abdominal tenderness. There is no guarding. Musculoskeletal: General: No swelling or deformity. Skin: Coloration: Skin is not jaundiced. Findings: No erythema or rash. Neurological: Mental Status: Patient is agitated. MEDICAL DECISION MAKING: Patient is noted to be agitated and nonverbal, presumably postictal though this could be within the context of other substance ingestion. He is placed into restraints and given Ativan 2 mg intravenously. After the patient was given an additional 2 mg of Ativan for a total 4 mg he remained agitated. I made the decision to intubate him so we could complete his workup, including CT scan of the head. Endotracheal Intubation Time: 12:00 p.m. A time out was performed. My hands were washed immediately prior to the procedure. I wore a surgical cap, mask with protective eyewear, gown and gloves throughout the procedure. The patient was placed on a cafeteria monitor including continuous pulse oximetry. Rapid Sequence Intubation was conducted. The patient received 20 mg of etomidate for induction and 150 mg of succinylcholine for adequate paralysis. Cricoid pressure was maintained from time induction agent was given to time of cuff balloon inflation. Using a #4 Morelos laryngoscope and a size 7.5 mm endotracheal tube with stylet, the patient was intubated on the 1st attempt. The stylet was removed and cuff balloon was inflated. Appropriate endotracheal tube position was confirmed by direct visualization of vocal cord passage, fogging of the tube, CO2 colormetric indicator and symmetric breath sounds. The tube was secured at 23 cm at the lips. Post intubation chest x-ray is pending at this time. No apparent complications noted. PROCEDURE: Ultrasound Guided right internal jugular Central Venous Line Insertion DIAGNOSIS: Seizures in sepsis Procedure Performed by Ihsan De La Cruz MD INFORMED CONSENT: Informed Consent was obtained. Procedural pause was observed at 1300. I have verified the correct patient, correct procedure, correct position, correct site, and available equipment. The site was marked. PROCEDURE START TIME: 1300 PROCEDURE STOP TIME: 1320 INDICATION: Unable to obtain sufficient peripheral access for multiple medications PROCEDURE IN DETAIL: The patient and ultrasound transducer were prepped and draped in sterile fashion. Using the linear probe covered in a sterile sheath, a short axis view of the vein was obtained. This vein was completely compressible and was identified as separate from the adjacent non-compressible arterial structure. No intraluminal clot was visualized. Longitudinal views of the target vein were also obtained. No intravascular thrombus was identified. Under dynamic ultrasound guidance, an 18 gauge needle was advanced with return of dark red, non-pulsatile blood. A wire was advanced without difficulty. A 0.5 cm incision was made at the skin and the subcutaneous tissue is dilated. The catheter was advanced over the wire via the Seldinger technique and the wire was removed. All ports flushed without difficulty. The catheter was secured in place with sutures and the entrance site covered with a sterile, transparent, semi-permeable dressing With placement of CHG Biopatch. Placement was confirmed by radiography. These images were captured, recorded, and archived. The patient tolerated the procedure well with no complications. Blood loss was minimal. Conclusion: Successful central venous catheterization under ultrasound guidance. Due to the high probability of neurological failure required my full attention for about 40 minutes while the patient was critical. I provided critical care services which included medication orders, frequent re-evaluations, response to treatment, renewing test results, and discussing case with various consultants. Unless specifically stated all procedures, tests, and medications were performed /interpreted under the direct supervision of the emergency department physician. 3:38 p.m.: I spoke with our blow molding machine tender and he kindly agreed to admit the patient. Departure Disposition: ADMITTED INPATIENT Admitted to Inpatient Unit: to blow molding machine tender Admission Level of Care: Critcal Care Impression: Primary Impression: Convulsions Additional Impression: Sepsis Condition: Guarded DE IHSAN LARIOS MD Jul 20, 2025 11:08
[2025-07-20] MEDS: etomidate 2mg/ml inj. IV ONE (11:47)
[2025-07-20] MEDS: rocuronium 10mg/ml inj IV ONE (11:48)
[2025-07-20] MEDS: succinylcholine 20mg/ml inj IV ONE ×2 (11:56→12:30)
[2025-07-20] MEDS: propofol 1000mg/100ml bottle 100 ML IV SCH (12:10)
[2025-07-20] MEDS: propofol 1000mg/100ml bottle 100 ML IV ONE (12:25)
[2025-07-20] MEDS: FENTANYL-0.9 % NACL/PF 100 ML IV SCH (12:30)
[2025-07-20] MEDS: MIDAZolam 5mg/ml 2ml vial ONE (12:30)
[2025-07-20] MEDS: FENTANYL-0.9 % NACL/PF 100 ML ONE (12:30)
[2025-07-20 12:48] LABS: ABG BASE EXCESS -4.1 mmol/L (-2.0-3.0); ABG HCO3 21.6 mmol/L (21.0-28.0); ABG OXYGEN SATURATION 98.7 % (94.0-98.0); ABG PCO2 (T) 45.4 mmHg (35.0-48.0); ABG PH (T) 7.305 (7.350-7.450); ABG PO2 (T) 162.4 mmHg (83.0-108.0); FCOHb 0.3 % (0.5-1.5); FHHb 1.3 % (0.0-5.0); FIO2 50.0 mmHg/%; FMetHb 0.2 % (0.0-1.5); FO2Hb 98.2 % (94.0-98.0); MODE VENT - PRVC; PATIENT TEMPERATURE 38.9; PEEP 5 cm H2O; RESPIRATORY RATE 16 b/min; TIDAL VOLUME 400 mL; TOTAL HEMOGLOBIN 15.7 G/dl (13.5-17.5)
--- NOTE | 2025-07-20 12:48 | RADIOLOGY REPORT ---
CHEST RADIOGRAPH Indication: POST INTUBATION, OG TUBE Technique: Single frontal view of the chest was obtained COMPARISON: DI CHEST,SINGLE VIEW on DOS: 02/14/25, DI CHEST,SINGLE VIEW on DOS: 11/06/24, DI CHEST,SINGLE VIEW on DOS: 07/30/23, DI CHEST,SINGLE VIEW on DOS: 07/29/23, DI CHEST,SINGLE VIEW on DOS: 07/28/23 FINDINGS: Endotracheal tube and enteric catheter in satisfactory position. Increased right lower lobe airspace disease. The lungs are clear. The pleura shows no effusion and no pneumothorax. The cardiomediastinal contours are unremarkable. The bones are unremarkable. IMPRESSION: Endotracheal tube and enteric catheter in satisfactory position. Increased right lower lobe airspace disease.
[2025-07-20 12:55] LABS: LEUKOCYTE ESTERASE ,URINE NEGATIVE (Neg); NITRITES, URINE NEGATIVE (Neg); OCCULT BLOOD,URINE MODERATE (Neg)
[2025-07-20] MEDS: acetaminophen 1,000mg/100ml IV 100 ML IV SCH (12:57)
[2025-07-20 13:01] LABS: CREATININE 1.37 MG/DL (0.60-1.10); TOTAL CARBON DIOXIDE 20.1 MMOL/L (24-32); VALPROATE 5 UG/ML (50-100); eCRCL 72 ML/MIN; eGFR 57 ML/MIN
[2025-07-20 13:02] LABS: URINE AMPHETAMINE SCREEN NEGATIVE (Neg); URINE BARBITUATE SCREEN NEGATIVE (Neg); URINE BENZODIAZEPINES SCREEN NEGATIVE (Neg); URINE CANNABINOID SCREEN POSITIVE (Neg); URINE COCAINE SCREEN NEGATIVE (Neg); URINE METHADONE SCREEN NEGATIVE (Neg); URINE OPIATE SCREEN NEGATIVE (Neg); URINE PHENCYCLIDINE SCREEN NEGATIVE (Neg)
[2025-07-20 13:05] LABS: UA COLLECTION TYPE FOLEY CATH
[2025-07-20 13:07] LABS: ETHANOL < 10 MG/DL (<10)
[2025-07-20 13:07] LABS: URIC ACID CRYSTALS 3+ /HPF (NEGATIVE)
[2025-07-20 13:09] LABS: HYALINE CASTS 0-3 /LPF (NEGATIVE); SQUAMOUS EPITHELIAL CELL,UR NONE SEEN /LPF (FEW)
[2025-07-20] MEDS: CefTRIAXone 2gm/D5W 50ml BAG 50 ML IV ONE (13:28)
[2025-07-20 13:32] LABS: MEAN PLATELET VOLUME 8.2 FL (7.4-10.4); RED CELL DISTRIBUTION WIDTH 14.5 % (11.5-14.5)
--- NOTE | 2025-07-20 13:39 | ELECTROCARDIOGRAPH REPORT ---
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
--- NOTE | 2025-07-20 13:43 | RADIOLOGY REPORT ---
CHEST RADIOGRAPH Indication: central line Technique: Single frontal view of the chest was obtained COMPARISON: DI CHEST,SINGLE VIEW on DOS: 07/20/25, DI CHEST,SINGLE VIEW on DOS: 02/14/25, DI CHEST,SINGLE VIEW on DOS: 11/06/24, DI CHEST,SINGLE VIEW on DOS: 07/30/23, DI CHEST,SINGLE VIEW on DOS: 07/29/23 FINDINGS: Lines and Tubes: Endotracheal tube, enteric catheter and right central venous catheter in satisfactory position. Lungs: Congestion. Pleura: No effusion. No pneumothorax. Cardiomediastinal contours: Unremarkable. Bones: Unremarkable. IMPRESSION: Lines and tubes in satisfactory position. No significant interval change.
[2025-07-20 13:46] LABS: INR 1.0 INR
[2025-07-20] MEDS: piperacillin/tazo 3.375gm/50ml 50 ML IV STA (15:36)
[2025-07-20] MEDS: normal saline 1000ml 1,000 ML IV ONE ×2 (15:39→16:23)
--- NOTE | 2025-07-20 15:46 | RADIOLOGY REPORT ---
EXAM: CT CT HEAD HISTORY: ALOC COMPARISON: MR MRI HEAD on DOS: 04/19/25, MR MRI HEAD on DOS: 11/07/24, CT CT HEAD on DOS: 11/06/24, CT CT HEAD on DOS: 07/27/23, CT HEAD on DOS: 10/21/18 TECHNIQUE: Noncontrast axial CT images of the head were performed. Sagittal and coronal reformatted images were obtained. This CT exam was performed using 1 or more of the following dose reduction techniques: Automated exposure control, adjustment of the mA and/or kv according to patient size, or the use of iterative reconstruction techniques. Radiation Dose: CTDI volume is 67.4 mGy. Dose-length product is 1503.72 mGy*cm FINDINGS: No intracranial hemorrhage, mass, midline shift, hydrocephalus, or evidence of acute large vessel infarct. The paranasal sinuses are clear. The bilateral mastoid air cells and middle ear spaces are clear. No cranial fracture or scalp edema. There are partially visualized endotracheal and OG tubes. There are multiple dental caries. The teeth are not fully imaged here. IMPRESSION: 1. No acute intracranial process. 2. Partially visualized endotracheal tube and OG tube. 3. Multiple dental caries. The teeth are not fully imaged here.
[2025-07-20] MEDS: ketorolac trometh 15mg/ml vial 15 MG/ML ML IV ONE (16:00)
[2025-07-20] MEDS ORDERED: magnesium hydroxide 30ml (MOM) UD suspension PO PRN (16:40)
[2025-07-20] MEDS ORDERED: morphine 4 MG/ML inj SYRINge IV PRN ×2 (16:40→19:42)
[2025-07-20] MEDS: LidoCAINE 2% Topical Jelly 11mL syringe (UROJET) TOP ONE (16:56)
[2025-07-20] MEDS: normal saline 1000ml 1,000 ML IV SCH ×2 (17:04→22:55)
--- NOTE | 2025-07-20 17:08 | HISTORY AND PHYSICAL ---
History of Present Illness End CC ~ Admission Diagnosis:.: Seizures History of Present Illness H/O Seizures brought into ER via EMS after having several seizure episodes. Pt postictal in the requiring intubation for airway protection. Currently sedated Allergies: Coded Allergies: methylphenidate HCl (Verified Allergy, Unknown, "MY GROWTH WAS STUNTED", 07/20/25) Uncoded Allergies: CIG. SMOKE (Allergy, Severe, "ANAPHYLACTIC SHOCK"., 09/13/14) Home Medications Home Medications Active Levetiracetam 250 Mg Tablet 1,000 Mg PO TID 30 Days Reported Aripiprazole 10 Mg Tablet 1 Tab PO HS Past Surgical History Past Surgical History: no surgical history Past Social History Smoking: Non-Smoker Alcohol Use: Occasionally Drug Use: Marijuana Lives with: Family Lives In: Home Occupation: student Advance Care Planning Advanced Care plannin - 30 Minutes Review of Systems Unable to obtain complete ROS: intubated Physical Exam Last Vital Signs recorded: Temperature: 101.1, Source: Bladder, Heart Rate: 60, Respiratory Rate: 18, BP: 104/62, Pulse Oximetry: 100, Weight: 72.000 General Appearance: no apparent distress EENT: PERRL/EOMI Neck: full range of motion, supple Respiratory: lungs clear Cardiovascular: regular rate, rhythm Peripheral Pulses: 1+ carotid (R), 1+ carotid (L), 1+ radial (R), 1+ radial (L), 1+ femoral (R), 1+ femoral (L), 1+ dorsalis pedis (R), 1+ dorsalis pedis (L), 1+ posterior tib (R), 1+ posterior tib (L), 1+ other Gastrointestinal: bowels sounds present Extremities: no edema Neurologic: unable to test Results Diagram Lab Result Diagram: 07/20/25 1324 07/20/25 1233 Assessment/Plan 1-Seizures -Continue Keppra -EEG 2-Acute Hypoxemic Resp Failure -F/U ABG, CXR Hardik Akers CC time 35min RUI AKERS MD Jul 20, 2025 17:08
[2025-07-20] MEDS: ringers solution, lacted 1,000 ML IV ONE (17:51)
--- NOTE | 2025-07-20 18:26 | ELECTROCARDIOGRAPH REPORT ---
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
[2025-07-20] MEDS ORDERED: rocuronium 10mg/ml inj IV ONE (19:00)
[2025-07-20] MEDS ORDERED: etomidate 2mg/ml inj. ONE (19:00)
[2025-07-20] MEDS: docusate sod 100mg capsule PO SCH (20:00)
[2025-07-20] MEDS: levetiracetam inj 750 MG in normal saline 100ml IV soln 100 ML IV SCH (20:14)
--- NOTE | 2025-07-20 20:45 | PROGRESS NOTE ---
Progress Note Dictate Providers to CC ~ Antibiotic Ordered?: Yes Objective Vitals Vital Signs Date Time Temp Pulse Resp B/P (MAP) Pulse Ox O2 Delivery O2 Flow Rate FiO2 07/20/25 19:38 45 18 99 30 07/20/25 19:30 99.5 100/39 (59) Mechanical Ventilator 07/20/25 10:57 3.0 Lab Results: 07/20/25 1324 07/20/25 1233 Coagulation Studies Laboratory Tests Test 07/20/25 13:24 Prothrombin Time 10.4 SECONDS (9.0-12.0) INR International Normalized Ratio 1.0 INR Coagulation Comments Problem\Assessment\Plan Additional Plan 40 year old male with history of seizures admitted after a seizure and intubated for airway protection. agitated and reaching for ETT when off sedation. started on propofol and fentanyl. Plan: continue keppra continue mIVF at 100cc/hr SAT and SBT in am continue abx CCT 57 min using HIPPA compliant A/V technology OMAR BURKS MD Jul 20, 2025 20:45
[2025-07-20] MEDS ORDERED: LEVE750T85 PO (22:17)
[2025-07-21] VITALS (13 sets, daily range): BP systolic 89–115; BP diastolic 49–72; PULSE 41–82; RESP 14–18; O2SAT 97–100
[2025-07-21 02:41] LABS: MEAN PLATELET VOLUME 8.7 FL (7.4-10.4); RED CELL DISTRIBUTION WIDTH 14.4 % (11.5-14.5)
[2025-07-21 02:52] LABS: CREATININE 1.27 MG/DL (0.60-1.10); PHOSPHORUS 2.9 MG/DL (2.3-4.5); TOTAL CARBON DIOXIDE 24.3 MMOL/L (24-32); eCRCL 77 ML/MIN; eGFR 62 ML/MIN
[2025-07-21 03:38] LABS: ABG BASE EXCESS -3.9 mmol/L (-2.0-3.0); ABG HCO3 19.5 mmol/L (21.0-28.0); ABG OXYGEN SATURATION 97.9 % (94.0-98.0); ABG PCO2 (T) 30.5 mmHg (35.0-48.0); ABG PH (T) 7.423 (7.350-7.450); ABG PO2 (T) 104.1 mmHg (83.0-108.0); ALLEN'S TEST Modified; FCOHb 0.6 % (0.5-1.5); FHHb 2.1 % (0.0-5.0); FIO2 30.0 mmHg/%; FMetHb 0.3 % (0.0-1.5); FO2Hb 97.0 % (94.0-98.0); MODE PRVC AC; PATIENT TEMPERATURE 37.0; PEEP 5 cm H2O; RESPIRATORY RATE 18 b/min; TIDAL VOLUME 400 mL; TOTAL HEMOGLOBIN 12.7 G/dl (13.5-17.5)
--- NOTE | 2025-07-21 06:19 | RADIOLOGY REPORT ---
CHEST RADIOGRAPH Indication: intubated Technique: Single frontal view of the chest was obtained COMPARISON: DI CHEST,SINGLE VIEW on DOS: 07/20/25, DI CHEST,SINGLE VIEW on DOS: 07/20/25, DI CHEST,SINGLE VIEW on DOS: 02/14/25, DI CHEST,SINGLE VIEW on DOS: 11/06/24, DI CHEST,SINGLE VIEW on DOS: 07/30/23 FINDINGS: Lines and Tubes: Unchanged. Lungs: Clear. Left lung base excluded from the image. Pleura: No effusion. No pneumothorax. Cardiomediastinal contours: Unremarkable Bones: Unremarkable IMPRESSION: 1. No acute cardiopulmonary disease. Left lung base excluded from the image. 2. Lines and tubes unchanged.
[2025-07-21] MEDS: pantoprazole 40mg Tablet.DR PO SCH (07:39)
[2025-07-21] MEDS: enoxaparin 40mg/0.4ml syringe SUBCUT SCH (07:40)
[2025-07-21] MEDS: ondansetron/PF 4mg/2ml inj IV PRN (07:43)
--- NOTE | 2025-07-21 11:28 | DISCHARGE SUMMARY-Residence ---
Discharge Summary Providers to CC Resident Creating Document: DESEAN AGUILAR, ESTELLE ~ Discharge Summary Admission Diagnosis: Seizures Hospital Course DATE OF ADMISSION: 07/20/2025 DATE OF DISCHARGE: 07/21/2025 Discharge Diagnosis\Comment: Seizures Postictal confusion Acute hypoxemic respiratory failure JOSHUA secondary to vasomotor nephropathy Operations\Procedures: Intubation and mechanical ventilation Consultants: Retail Clerk-Dr. Akers Complications: None Condition on DC: Unstable Discharge Summary: 40 years old male with past medical history of seizures, polysubstance use, noncompliance was brought to the ED after sustaining multiple at least four episodes of seizures as reported per the EMS. The patient was significantly altered at the time of arrival and was not able to provide any history. He was initially treated with IV benzodiazepines and was also found to not be able to protect his own airway because of the postictal confusion and had to be intubated by the ER physician. The patient was started on mechanical ventilation and was started on sedation with the propofol and fentanyl. A CT scan of the head was done which was negative for any acute intracranial abnormalities. The patient was also treated with IV Keppra loading and maintenance in view of his seizures. He was started on IV antibiotics prophylactically in the ER. Once the patient is stabilized he was weaned off of sedation and was extubated. The patient woke up from sedation post extubation and reported that he wants to go home against medical advice. He was explained regarding his condition, importance of being in the hospital and also about the risks of going against medical advice and the patient still decided that he wanted to go against medical advice. The patient left AMA. *Problems/Diagnosis: (1) Acute hypoxemic respiratory failure (2) JOSHUA (acute kidney injury) (3) Nausea & vomiting Status: Acute (4) Tonic-clonic seizure Status: Acute (5) Seizures Status: Acute (6) Seizure disorder Status: Acute Total Time Spent on D/C: > 30 Minutes Date of Service: Jul 21, 2025 Billing Provider: RUI AKERS MD, SURYA PRATIK, ESTELLE Jul 21, 2025 11:26
== END 2025-07-21 09:30 | disposition left against medical advice (07) | DRG 53 ==
LOC: ER 10:56 → ED HOLD 16:41 → CICU 2S 19:31
PROVIDERS: ADMIT Internal Medicine Critical Care Medicine; ATTEND Internal Medicine Critical Care Medicine
PROC: 0BH17EZ Insertion of Endotracheal Airway into Trachea, Via Natural or Artificial Opening (ICD-10-PCS; principal; 2025-07-20)
PROC: 5A1935Z Respiratory Ventilation, Less than 24 Consecutive Hours (ICD-10-PCS; 2025-07-20)
PROC: 05HY33Z Insertion of Infusion Device into Upper Vein, Percutaneous Approach (ICD-10-PCS; 2025-07-20)
PROC: B54MZZA Ultrasonography of Right Upper Extremity Veins, Guidance (ICD-10-PCS; 2025-07-20)
DX: G40.909 Epilepsy, unspecified, not intractable, without status epilepticus (principal); N17.0 Acute kidney failure with tubular necrosis; J96.01 Acute respiratory failure with hypoxia; Z20.822 Contact with and (suspected) exposure to COVID-19; Z78.1 Physical restraint status
CPT/HCPCS: 36415; 36600; 70450; 71045; 80048; 80053; 80164; 80177; 80305; 80320; 81001; 82803; 82948; 83036; 83605; 83735; 84100; 85018; 85025; 85610; 87070; 87081; 87811; 93005; 94002; 94003; 94760; 94799; 96365; 96367; 96375; 99285; A4615; A4620; A6213; A6258; A6449; A9900; C1758; G0378; J0131; J0330; J0696; J1650; J1885; J1953; J2060; J2405; J2543; J2704; J3010; J3490; J7030; J7120

== ENCOUNTER 2025-09-13 15:08 | Inpatient (IN) | payer MEDICAID ==
[~2025-09-13] VITALS: Ht 182.9 cm; Wt 74.5 kg
[~2025-09-13 15:08] MED LIST changes: -ARIP10TA87 PO; -LEVE250T PO; +LEVE750T85 PO
--- NOTE | 2025-09-13 15:49 | Physician Documentation ---
History of Present Illness General Chief Complaint: Seizure Stated Complaint: SEIZURES Time Seen by MD: 15:48 Primary Medical Doctor: DORIS NOLAN History of Present Illness Initial Comments The patient is a 40-year-old male brought in by EMS for seizure activity. The patient has a history of seizures he takes Keppra family states he has been taking two pills of Keppra he is supposed to take four pills of Keppra. The patient's last seizure was in August 20. The patient had four seizures at home. Family states that he starts the put his finger down his throat and causes himself to vomit between his seizures. This is common for him when he has a seizure. Otherwise the patient has been in his normal state of health. No reported fevers or chills. The patient girlfriend and EMS provided the patient's history. Medication Reconciliation Allergies: Coded Allergies: methylphenidate HCl (Verified Allergy, Unknown, "MY GROWTH WAS STUNTED", 07/20/25) Uncoded Allergies: CIG. SMOKE (Allergy, Severe, "ANAPHYLACTIC SHOCK"., 09/13/14) Scheduled Levetiracetam (Levetiracetam), 4 TAB PO DAILY, (Reported) Past Medical History Past Medical History: Seizures, *GI/HEPATOBILIARY*, Inflammatory Bowel Dz, Diabetes, Panic Disorder Past Surgical History: no surgical history Smoking: Non-Smoker Alcohol Use: Occasionally Drug Use: marijuana Lives with: Family Lives In: Home Occupation: student Review of Systems Unable to obtain complete ROS: altered mental status (Seizure) Physical Exam Physical Exam Vital Signs: Temperature: 97.9, Heart Rate: 93, Respiratory Rate: 18, BP: 105/79, Pulse Oximetry: 99, Weight: 74.550 Oxygen Flow Rate: 0 Physical Exam VITALS: Reviewed and as above. GENERAL: Confused moving all extremities HEENT: Normocephalic, atraumatic, PERRL, EOMI, dry mucosa, no erythema RESPIRATORY: Lungs clear, normal breath sounds, no respiratory distress. CHEST: No accessory muscle use, no retractions CV: Regular rate, rhythm, no edema, no murmur, No: JVD GI: Soft, non-tender, bowels sounds present, no rebound, guarding, or rigidity BACK: No CVA tenderness, or swelling MUSCULOSKELETAL: No deformities, no edema SKIN: Warm and dry, no rash NEURO: Confused moving all extremities No motor or sensory deficit PSYCH: Normal mood and affect, no agitation Progress Results/Orders Results/Orders Orders - AKSHAT MURRAY MD Chest,Single View (09/13/25 18:23) Completed Orders - AKSHAT MURRAY MD Chest,Single View (09/13/25 18:23) Procalcitonin (09/13/25 16:57) Haloperidol Lact. (Haldol) (09/13/25 17:10) Diphenhydramine Inj (Benadryl Inj.) (09/13/25 17:10) Vital Signs 09/13/25 09/13/25 09/13/25 09/13/25 15:20 15:41 15:59 16:27 Temp 97.9 Pulse 93 Resp 18 18 22 20 B/P (MAP) 105/79 Pulse Ox 99 O2 Flow Rate 0 09/13/25 16:30 Pulse 106 Resp 22 B/P (MAP) 99/72 (81) Pulse Ox 100 O2 Flow Rate 15.0 Laboratory Tests Test 09/13/25 15:27 09/13/25 16:00 09/13/25 17:03 Glucometer 190 H White Blood Count 19.4 H Red Blood Count 5.38 Hemoglobin 16.2 Hematocrit 51.0 Mean Corpuscular Volume 94.9 Mean Corpuscular Hemoglobin 30.2 Mean Corpuscular Hemoglobin Concent 31.8 L Red Cell Distribution Width 15.6 H Platelet Count 374 Mean Platelet Volume 9.1 Neutrophils (%) (Auto) 72.8 Lymphocytes (%) (Auto) 18.6 L Monocytes (%) (Auto) 8.2 Eosinophils (%) (Auto) 0.1 Basophils (%) (Auto) 0.3 Neutrophils # (Auto) 14.1 H Lymphocytes # (Auto) 3.6 Monocytes # (Auto) 1.6 H Eosinophils # (Auto) 0.0 Basophils # (Auto) 0.0 CBC Comment Sodium Level 144 Potassium Level 4.1 Chloride Level 104 Carbon Dioxide Level 12.7 *L Anion Gap 27 H Blood Urea Nitrogen 13 Creatinine 1.60 H Estimated GFR/1.73 m2 48 BUN/Creatinine Ratio 8.1 L Glucose Level 216 H Calcium Level 9.8 C-Reactive Protein 0.15 Albumin 4.7 Chemistry Comments Procalcitonin < 0.05 Medical Decision Making Additional information obtaine: old records Findings Patient presents with multiple suspected grand mal seizures which has been difficult to treat in the ED. He has received multiple benzodiazepine infusions and along with the Keppra normal saline. He is currently postictal and ALOC. With a grossly diminished CO2 level he had one episode of agitation but has since calmed down. He has request hospitalization in the resident graciously accepted Differential Diagnosis j Departure Disposition: 09 ADMITTED INPATIENT Impression: Primary Impression: Seizure disorder Referrals: NO PRIMARY CARE PROVIDER (PCP) Critical Care Note Total Time (mins): 40 Critical Care Note The very real possibility of a deterioration of this patient's condition required the highest level of my preparedness for sudden, emergent intervention. I provided critical care services, which included medication orders, frequent reevaluations of the patient's condition and response to treatment, ordering and reviewing test results, and discussing the case with various consultants. Excludes time spent performing separately billable procedures. The critical care time associated with the care of the patient was. Additional Comment Seen with PA/WINDROWER OPERATOR The patient was seen with the nurse practitioner the patient presented in status epilepticus and was treated aggressively with benzodiazepines and then and then load of Keppra 1.5 g the patient has had multiple seizures he will be admitted to the hospitalist service case has been discussed with the hospitalist of supervised all aspects the patient's care. The patient's cardiac rehabilitation specialist was i nterpreted as a sinus tachycardia and the patient's pulse oximetry was interpreted as normal and adequate Signature Scribe Signature: y Attestation: Scribed for Qasim Bazan [employer] by Qasim Gomez NP . 09/13/25 18:24 OHLFS,AKSHAT Anderson MD Sep 13, 2025 15:49 QASIM BAZAN NP Sep 13, 2025 16:57
[2025-09-13] MEDS: diazepam inj 5 MG/ML inj. IV ONE (15:59)
[2025-09-13] MEDS: normal saline 1000ml 1,000 ML IV ONE (16:00)
[2025-09-13] MEDS: levetiracetam inj 1,500 MG in normal saline 100ml IV soln 100 ML IV STA (16:01)
[2025-09-13 16:16] LABS: MEAN PLATELET VOLUME 9.1 FL (7.4-10.4); RED CELL DISTRIBUTION WIDTH 15.6 % (11.5-14.5)
[2025-09-13 16:28] LABS: CREATININE 1.60 MG/DL (0.60-1.10); eCRCL 63 ML/MIN; eGFR 48 ML/MIN
[2025-09-13 16:35] LABS: TOTAL CARBON DIOXIDE 12.7 MMOL/L (24-32)
[2025-09-13] MEDS ORDERED: magnesium Cl slow-release 64mg tablet PO PRN (17:10)
[2025-09-13] MEDS ORDERED: ondansetron/PF 4mg/2ml inj IV PRN (17:10)
[2025-09-13] MEDS ORDERED: magnesium hydroxide 30ml (MOM) UD suspension PO PRN (17:10)
[2025-09-13] MEDS ORDERED: potassium Cl 40MEQ/1/2NS 520ml 520 ML IV PRN (17:10)
[2025-09-13] MEDS ORDERED: magnesium sulf-water 4G/100mL 100 ML IV PRN (17:10)
[2025-09-13] MEDS ORDERED: potassium Cl 20 mEq SR tablet PO PRN ×2 (17:10)
[2025-09-13] MEDS ORDERED: HYDROcodone/acetaminophen 5mg/325mg tablet PO PRN (17:10)
[2025-09-13] MEDS ORDERED: mag hydrox/Alum hydrox/simeth 30ml oral suspension PO PRN (17:10)
[2025-09-13] MEDS ORDERED: magnesium sulf-water 2g/50mL 50 ML IV PRN (17:10)
[2025-09-13] MEDS: haloperidol lactate 5mg/ml inj IM ONE (17:12)
[2025-09-13] MEDS: normal saline 1000ML IV soln IVB ONE (17:16)
--- NOTE | 2025-09-13 17:44 | [facility] CONSULT REPORT ---
[facility] Procedure Note [facility] Procedure Note Consult [facility] Note # Demographics Consult Type: General Neurology Patient Location: Emergency Room First Name: Sedrick Last Name: Wayne Date of : 1985 Age: 40 Gender: Male Facility: [facility] Time of Initial Page (): 09/13/2025 17:15 First Contact with Site ( Time): 09/13/2025 17:15 Phone Only Consult: 40y M with history of seizure on Keppra supposed to 1500mg BID who presented to the ER with breakthrough seizure. Was only taking 750mg BID. Got 2mg Ativan and 1500mg Keppra in the ER at 1600. Since then has been stable and had improving mentation Phone Agreement: - phone consult deemed mutually sufficient for patient care # Assessment Impression: - Seizure # Plan Labs: - CBC - comprehensive metabolic panel - Toxic/metabolic/infectious work up as indication per primary team Imaging: (urgency: routine): - If not continuing to improve or decline in status would get CT head Diagnostic Test: - If not continuing to improve or further seizure would get EEG Medication: - Keppra 750mg once tonight - Keppra 1500mg BID starting tomorrow morning Other: - If patient has any neurological deterioration please call me back immediately - seizure precautions - I have discussed my recommendations with the referring provider - No driving until cleared by local neurology # Logistics Attestation of consult completion: The patient is located at: [facility]. I performed this phone consultation from my offsite office Consent: Verbal consent was obtained from the patient and/or family for this encounter. Total time spent in telemedicine encounter: I spent 5 minutes in reviewing clinical data and/or imaging, obtaining history, communicating with the onsite care team, and in preparation of this report. # Demographics First Name: Sedrick Last Name: Wayne Facility: [facility] Electronically signed at 09/13/2025 17:42 () by Lashawn Greco DO Neuro Consult Order placed for: Yes LASHAWN GRECO DO Sep 13, 2025 17:44
--- NOTE | 2025-09-13 17:57 | HISTORY AND PHYSICAL-Residence ---
History & Physical Providers to CC Resident Creating Document: ISMAEL COHEN RES ~ History of Present Illness Primary Medical Doctor: PARVEEN/ AN Reason for Admit\\Complaint: Seizures History of Present Illness This is a 40-year-old male with past medical history of seizure disorder, noncompliant with his medication who came to the ED after 4 episodes of witnessed GTCS at home. He had 1 episode of witnessed seizure in the ER, lasted 1-2 minutes. No tongue bite, involuntary micturition present. Patient is currently in postictal state. He is arousable but not oriented. He gets agitated when trying to converse with him. Allergies: Coded Allergies: methylphenidate HCl (Verified Allergy, Unknown, "MY GROWTH WAS STUNTED", 07/20/25) Uncoded Allergies: CIG. SMOKE (Allergy, Severe, "ANAPHYLACTIC SHOCK"., 09/13/14) Home Medications Home Medications Active Reported Levetiracetam 750 Mg Tab.er.24h 4 Tab PO DAILY Past Medical History Past Medical History Seizure disorder, noncompliant with his medication. Past Surgical History Surgical History Comment Nothing significant. Past Social History Smoking: Non-Smoker Alcohol Use: Occasionally Drug Use: Marijuana Lives with: Family Lives In: Home Occupation: student ROS Unable to obtain: altered mental status (Seizure) Exam Vitals: Vital Signs Date Time Temp Pulse Resp B/P (MAP) Pulse Ox O2 Delivery O2 Flow Rate FiO2 09/13/25 17:18 98.5 111 16 116/64 (81) 100 0 General: General: Drowsy, disoriented, agitated when trying to wake him, in acute distress HEENT: Conjunctive are pink, sclerae clear, no icterus Neck: Supple, no JVD, no lymphadenopathy and thyromegaly. Chest: Equal air entry on both lungs, no added sounds, no wheeze. Cardiovascular: S1-S2 regular sinus rhythm and, regular rate, no gallops, no rubs, no murmurs Abdomen: Bowel sounds present on auscultation, soft, nontender, no guarding, no rigidity Extremities: No obvious deformities, no pitting edema bilaterally, capillary refill intact, peripheral pulsations are intact on both sides Central Nervous System: Moving all 4 limbs, could not assess higher mental functions. Musculoskeletal: No joint swelling, deformities, inflammations, and no scoliosis and back tenderness Skin: Diaphoresis, Warm Diagnostic Data Last Recorded Lab Results: 09/13/25 1600 09/13/25 1600 Counseling Services Smoking & Tobacco Cessation: N/A Advance Care Planning Advanced Care plannin - 30 Minutes (Full code) Additional Plan Assessment: This is a 40-year-old male with history of seizure disorder, noncompliant with his medications who is currently being treated for GTCS. Seizure disorder-witnessed GTCS Patient currently in postictal state. He received lorazepam 2 mg in the ER with Keppra 1500 Home medication includes Keppra 1500 p.o. b.i.d. we will continue the same. Vitals: Tachycardia with soft blood pressure. No episodes of hypoglycemia documented. No recent change in medications, no recent trauma. CBC shows leukocytosis, to rule out sepsis. Awaiting chest x-ray, urinalysis, U tox, normal inflammatory markers. Awaiting hemoglobin A1c, lipid panel. Aspiration precautions, regular diet after bedside swallow study Neurology consulted. CT head, MRI, EEG gives the patient remains disorientation for prolonged time or recurrent seizures. JOSHUA most likely prerenal Creatinine 1.6, BUN 13 Hydration with 100 mL/hour normal saline. Code status: Full code DVT prophylaxis: Heparin 5000 units subcutaneous q.8h Analgesia/sedation: Morphine/[place] Line/tube: PIV GI prophylaxis: None Nutrition: Regular diet after bedside swallow study PT: Ordered. Prognosis: Guarded Disposition: Admit to PCU, rule out infection, aspiration precautions. Patient is full code for now. We will review code status with him when he is oriented or discuss the same with next of kin tomorrow. Ismael Cohen MD PGY1, Internal Medicine [facility] Date of Service: Sep 13, 2025 Billing Provider: OLMAN AYON MD Common Visit Codes: [id number] INP/OBS CARE (HIGH) Secondary Visit Codes: [id number] CARE PLAN 30 MINUTES ISMAEL COHEN, RES Sep 13, 2025 17:57 OLMAN AYON MD Sep 15, 2025 07:03
[2025-09-13] MEDS: heparin, porcine 5000 units/ml vial SQ SCH (20:00)
[2025-09-13] MEDS: docusate sod 100mg capsule PO SCH (20:00)
[2025-09-13] MEDS: K and/or MAG REPLACEMENT MC SCH (20:00)
[2025-09-13 20:19] LABS: LEUKOCYTE ESTERASE ,URINE NEGATIVE (Neg); NITRITES, URINE NEGATIVE (Neg); OCCULT BLOOD,URINE SMALL (Neg)
[2025-09-13 20:23] LABS: URINE AMPHETAMINE SCREEN NEGATIVE (Neg); URINE BARBITUATE SCREEN NEGATIVE (Neg); URINE BENZODIAZEPINES SCREEN POSITIVE (Neg); URINE CANNABINOID SCREEN POSITIVE (Neg); URINE COCAINE SCREEN NEGATIVE (Neg); URINE METHADONE SCREEN NEGATIVE (Neg); URINE OPIATE SCREEN NEGATIVE (Neg); URINE PHENCYCLIDINE SCREEN NEGATIVE (Neg)
--- NOTE | 2025-09-13 20:33 | RADIOLOGY REPORT ---
EXAM: DI CHEST,SINGLE VIEW HISTORY: seizures,PT ON SIDE, UNCOOPERATIVE, X-TABLE LIMITED IMAGE IN RESTRAINTS TECHNIQUE: 1 view of the chest with overall limited evaluation secondary to cross-table lateral COMPARISON: DI CHEST,SINGLE VIEW on DOS: 07/21/25 FINDINGS/IMPRESSION: LUNGS: No pleural effusion, consolidation, or pneumothorax. MEDIASTINUM: Unremarkable. BONES: No acute osseous abnormality. OTHER: None.
[2025-09-13 20:44] LABS: UA COLLECTION TYPE CLN CATCH MIDSTREAM
[2025-09-13 21:18] LABS: SQUAMOUS EPITHELIAL CELL,UR NONE SEEN /LPF (FEW)
[2025-09-13 21:19] LABS: AMORPHOUS URATES 1+
--- NOTE | 2025-09-14 00:26 | RADIOLOGY REPORT ---
EXAM: CT CT HEAD INDICATION: ALOC TECHNIQUE: CT of the head without intravenous contrast. Radiation Dose : 1. Head: CT Dose: CTDI volume is 55.09 mGy. Dose-length product is 984.45 mGy*cm The dose indicators for CT are the volume Computed Tomography (CT) Dose Index (CTDIvol) and the Dose Length Product (DLP), and are measured in units of mGy and mGy-cm, respectively. These indicators are not patient dose, but values generated from the CT scanner acquisition factors. The report includes radiation exposure data for exposures received during this examination. COMPARISON: CT CT HEAD on DOS: 07/20/25, MR MRI HEAD on DOS: 04/19/25, MR MRI HEAD on DOS: 11/07/24, CT CT HEAD on DOS: 11/06/24, CT CT HEAD on DOS: 07/27/23 FINDINGS: There is no evidence of acute intracranial hemorrhage, extra-axial collection, mass effect, midline shift, herniation or hydrocephalus. The ventricles, sulci and cisterns are age appropriate. The sandoval-white differentiation is intact. The visualized paranasal sinuses and mastoid air cells are clear. The surrounding soft tissues and osseous structures are unremarkable. IMPRESSION: 1. No evidence of acute intracranial abnormality. Radiation optimization: All CT scans at this facility use at least one of these dose optimization techniques: automated exposure control mA and/or kV adjustment per patient size (includes targeted exams where dose is matched to clinical indication) or iterative reconstruction.
[2025-09-14] MEDS: levetiracetamNACL 1500mg/100mL 100 ML IV ONE ×2 (01:06→07:40)
[2025-09-14 06:00] VITALS: BP 104/61; PULSE 74; RESP 15; TEMP 97.8; O2SAT 97
--- NOTE | 2025-09-14 06:01 | ELECTROCARDIOGRAPH REPORT ---
[facility] Test Date: 2025-09-14 Test Time: 05:31:37 Pat Name: CHINA SANDERS Department: [facility] Patient ID: [facility]-[id number] Room: [place] [address] A Gender: M [employer]: : 1985 Requested By: CAMMY COOMBS Order Number: [id number] Reading MD: Dr. YUDI Robin Measurements Intervals [place] Rate: 77 P: 82 OR: 167 QRS: 60 QRSD: 90 T: 62 QT: 393 QTc: 445 Interpretive Statements Sinus rhythm Consider right atrial enlargement Electronically Signed On 09-14-2025 17:31:[address] YUDI Robin Please click the below link to view image of tracing.
[2025-09-14 06:57] LABS: MEAN PLATELET VOLUME 8.5 FL (7.4-10.4); RED CELL DISTRIBUTION WIDTH 14.7 % (11.5-14.5)
[2025-09-14 07:30] LABS: CHOL/HDL RATIO 3.7 (0.00-4.99); CREATININE 1.29 MG/DL (0.60-1.10); LDL CHOLESTEROL 114 MG/DL (50-100); TOTAL CARBON DIOXIDE 26.2 MMOL/L (24-32); eCRCL 79 ML/MIN; eGFR 61 ML/MIN
[2025-09-14 08:00] VITALS: RESP 15; O2SAT 97
[2025-09-14 10:59] VITALS: BP 100/64; PULSE 80; RESP 17; TEMP 97.9; O2SAT 100
--- NOTE | 2025-09-14 15:33 | CONSULTATION REPORT ---
History of Present Illness Providers to CC ~ Reason for Admit\\Admit Dx: Seizures Refering MD: PARVEEN/ AN Allergies: Coded Allergies: methylphenidate HCl (Verified Allergy, Unknown, "MY GROWTH WAS STUNTED", 07/20/25) Uncoded Allergies: CIG. SMOKE (Allergy, Severe, "ANAPHYLACTIC SHOCK"., 09/13/14) Home Medications Home Medications Active Reported Levetiracetam 750 Mg Tab.er.24h 4 Tab PO DAILY Physical Exam Last Vital Signs Recorded: Temperature: 97.9, Source: Oral, Heart Rate: 80, Respiratory Rate: 17, BP: 100/64, Pulse Oximetry: 100, Weight: 74.550 Results Diagram Lab Result Diagram: 09/14/2561809/14/25618 Assessment/Plan Additional Plan [place] Neuro Note # Demographics Consult Type: General Neurology Patient Location: Inpatient First Name: Sedrick Last Name: Wayne Date of : 1985 Age: 40 Gender: Male Facility: [facility] Time of Initial Page ( Time): 09/14/2025 12:11 First Contact with Site (Lucas Time): 09/14/2025 12:11 Phone Only Consult: 40 y/o M admitted with recurrent seizures at home and additional one in the ER. On Keppra 1500mg BID and reportedly compliant. CT head negative. Currently is back to baseline. Episodes consistent with epileptic events. Add Vimpat 100mg BID to the Keppra. Phone Agreement: - phone consult deemed mutually sufficient for patient care # Plan Other: - If patient has any neurological deterioration please call me back immediately # Logistics Attestation of consult completion: The patient is located at: [facility]. I performed this phone consultation from my offsite office Total time spent in telemedicine encounter: I spent 5 minutes in reviewing clinical data and/or imaging, obtaining history, communicating with the onsite care team, and in preparation of this report. # Demographics First Name: Sedrick Last Name: Wayne Facility: [facility] MICHELLE FORTE MD Sep 14, 2025 15:33
[2025-09-14 15:38] VITALS: BP 110/68; PULSE 73; RESP 14; TEMP 97.8; O2SAT 98
--- NOTE | 2025-09-14 17:44 | CARDIOLOGY REPORT ---
APPROVED REPORT EXAM: Comprehensive 2D, Doppler, and color-flow Echocardiogram. Patient Location: 3[address] Blood Pressure: 100/64 mmHg Heart Rate: 80 bpm Rhythm: SINUS ARRHYTHMIA Indications ARRHYTHMIA SEIZURE DISORDER [place]: none Previous echo: none 2D Dimensions RVDd 3.6 cm LA Diam 4.9 cm IVSd 0.8 (0.7-1.1cm) LVDd 4.9 cm PWd 0.9 (0.7-1.1cm) RA Major 4.3 cm IVSs 0.9 (0.8-1.2cm) RA Minor 3.6 cm LVDs 3.4 (2.5-4.0cm) PWs 1.2 (0.8-1.2cm) LVOT Diameter 2.18 (1.8-2.4cm) LVEF(%) 69.2 (>50%) IVC 21.55 mm FS (%) 31.5 % SV 66.5 ml CO 5.3 L/min M-Mode Dimensions Left Atrium(MM) 2.85 (2.5-4.0cm) IVSd 0.86 (0.7-1.1cm) LVDd 4.63 (4.0-5.6cm) Aortic Root 3.36 (2.2-3.7cm) PWd 0.89 (0.7-1.1cm) Aortic Cusp Exc 2.54 (1.5-2.0cm) IVSs 1.54 cm MV EPSS 0.5 (<0.5cm) LVDs 2.51 (2.0-3.8cm) FS (%) 46 % PWs 1.82 cm ESV(Teich) 22.4 ml LVEF(%) 67 (>50%) Biplane 2D LA Volumes LA ESV Index 24.82 mL/m2 Aortic Valve AoV Peak Andrew. 136.6 cm/s AoV VTI 23.3 cm AO Peak GR. 7.5 mmHg AO Mean GR. 3 mmHg LVOT VTI 22.74 cm LVOT Peak Andrew. 109.5 cm/s KENNY(VTI)/BSA 3.66 cm2/m2 KENNY (VTI) 3.66 cm2 AV DI 0.98 % Mitral Valve MV E Velocity 107.0 cm/s MV Peak Gr. 6 mmHg MV DECEL TIME 236 ms MV A Velocity 66.3 cm/s MV PHT 44 ms E/A Ratio 1.6 MVA (PHT) 5.00 cm2 MV VMax 122.9 cm/s TDI Medial E' P. V 17.30 cm/s E/Medial E' 6.2 Tricuspid Valve TR P. Velocity 209 cm/s RAP ESTIMATE 8 mmHg TR Peak Gr. 18 mmHg RVSP 26 mmHg Pulmonary Vein S1 Velocity 58.5 cm/s D2 Velocity 53.9 cm/s PVa Velocity 30.2 cm/s PVa Duration 92 msec LEFT VENTRICLE Normal LV size and wall thickness. Overall systolic function is normal. Overall LVEF is 65-70%. RIGHT VENTRICLE RV is mildly dilated in size with normal function. ATRIA LA size is normal. RA size is normal. AORTIC VALVE Trileaflet AV appears mildly sclerotic without stenosis or insufficiency. MITRAL VALVE Mild MV annular calcification without stenosis. Trace regurgitation. TRICUSPID VALVE TV appears structurally normal with mild regurgitation. PULMONIC VALVE Normal PV without stenosis, physiologic insufficiency. GREAT VESSELS The aortic root is normal in size. The ascending aorta is normal in size. IVC is dilated and collapses greater than 50% with inspiration. PERICARDIUM Normal pericardium. No effusion. Other Information Study Quality: Adequate Conclusion Overall LVEF is 65-70%. Normal LV size and wall thickness. Overall systolic function is normal. RV is mildly dilated in size with normal function. Trileaflet AV appears mildly sclerotic without stenosis or insufficiency. Mild MV annular calcification without stenosis. Trace regurgitation. TV appears structurally normal with mild regurgitation. Normal PV without stenosis, physiologic insufficiency. Normal pericardium. No effusion.
[2025-09-14 18:00] VITALS: BP 117/69; PULSE 60; RESP 14; TEMP 98.2; O2SAT 93
--- NOTE | 2025-09-14 18:13 | PROGRESS NOTE- Residence ---
Progress Note - Resident Providers to CC Resident Creating Document: ISMAEL COHEN RES ~ Amado-Non Protocol Amado Indications Met/Not Met: F/C Indications Not Met Antibiotic Timeout Antibiotic Ordered?: No MRSA Education MRSA Education Provided to pt: No Subjective Patient was examined bedside. He was awake alert and oriented x4, out of postictal state. Further information was obtained today. According to his girlfriend, he takes his seizure medications regularly. He drinks 1-2 beers a month and he gets seizures even with 1 beer. History of homelessness. Objective Vital Signs Date Time Temp Pulse Resp B/P (MAP) Pulse Ox O2 Delivery O2 Flow Rate FiO2 09/14/25 15:38 97.8 73 14 110/68 (82) 98 Room Air 09/14/25 08:00 0.0 Result Diagram: 09/14/2561809/14/25618 General: Well alert, well oriented, not confused, not agitated, not in acute distress, well cooperated during the physical. HEENT: Conjunctive are pink, sclerae clear, no icterus, pupil is equal in both sides, reactive to light, no ear discharge, no pharyngeal erythema or an edema. Neck: Supple, no JVD, no lymphadenopathy and thyromegaly. Chest: Equal air entry on both lungs, no added sounds, no wheeze. Cardiovascular: S1-S2 regular sinus rhythm and, regular rate, no gallops, no rubs, no murmurs Abdomen: No visible peristalsis, Bowel sounds present on auscultation, soft, nontender, no guarding, no rigidity Extremities: No obvious deformities, no pitting edema bilaterally, capillary refill intact, peripheral pulsations are intact on both sides Central Nervous System: No focal neurological deficits, no motor or sensory weakness in all 4 extremities, could move all 4 extremities, 2+ deep tendon reflexes, negative Babinski. Musculoskeletal: No joint swelling, deformities, inflammations, and no scoliosis and back tenderness Skin: Warm and dry. Counseling Services Smoking & Tobacco Cessation: N/A Advance Care Planning Advanced Care planning: N/A Plan Plan Assessment: This is a 40-year-old male with history of seizure disorder, apparently compliant with his medications who is currently being treated for GTCS. Seizure disorder-witnessed GTCS Vitals: Stable The patient was started oriented x4 today on examination. Currently on Keppra 1500 mg IV b.i.d., tele neurology consulted, added lacosamide 100 mg p.o. b.i.d. Home medication includes Keppra 1500 p.o. b.i.d. we will continue the same. No recent change in medications, no recent trauma, infection ruled out CBC normal, leukocytosis improved with hydration. Lactic acidosis improved. U tox positive for cannabinoids, normal chest x-ray and urinalysis normal inflammatory markers. CT head was normal. JOSHUA most likely prerenal Creatinine improved to 1.2 Continue Hydration with 100 mL/hour normal saline. Code status: Full code DVT prophylaxis: Heparin 5000 units subcutaneous q.8h Analgesia/sedation: Morphine/[place] Line/tube: PIV GI prophylaxis: None Nutrition: Regular diet after bedside swallow study PT: Ordered. Prognosis: Guarded Disposition: Admit to PCU, rule out infection, aspiration precautions. I discussed the code status post 16 minutes with the patient including various resuscitative methods. The patient chose to be full code. Ismael Cohen MD PGY1, Internal Medicine [facility] Date of Service: Sep 14, 2025 Billing Provider: OLMAN AYON MD Common Visit Codes: [id number] INP/OBS CARE(HIGH) ISMAEL COHEN, RES Sep 14, 2025 18:13 OLMAN AYON MD Sep 15, 2025 07:04
[2025-09-14] MEDS: LACOSAMIDE 50 MG TABLET PO SCH (20:26)
[2025-09-14 22:00] VITALS: BP 99/66; PULSE 59; RESP 16; TEMP 97.3; O2SAT 98
[2025-09-15 02:00] VITALS: BP 98/55; PULSE 60; RESP 10; TEMP 97.7; O2SAT 99
[2025-09-15 06:52] VITALS: BP 107/75; PULSE 60; RESP 18; TEMP 97.7; O2SAT 99
[2025-09-15 07:20] LABS: MEAN PLATELET VOLUME 8.7 FL (7.4-10.4); RED CELL DISTRIBUTION WIDTH 14.5 % (11.5-14.5)
[2025-09-15 07:56] LABS: TOTAL CARBON DIOXIDE 21.0 MMOL/L (24-32)
[2025-09-15 08:00] VITALS: RESP 18; O2SAT 99
[2025-09-15 08:00] LABS: CREATININE 1.17 MG/DL (0.60-1.10); eCRCL 87 ML/MIN; eGFR 68 ML/MIN
[2025-09-15] MEDS ORDERED: LACO50TA2 PO (10:45)
[2025-09-15 10:48] VITALS: BP 128/77; PULSE 68; RESP 16; TEMP 97.9; O2SAT 98
--- NOTE | 2025-09-15 17:38 | DISCHARGE SUMMARY-Residence ---
Discharge Summary Providers to CC Resident Creating Document: TARA MARTINEZVANI, ESTELLE ~ Discharge Summary Admission Diagnosis: Seizures Hospital Course DATE OF ADMISSION: 09/13/2025 DATE OF DISCHARGE: 09/15/2025 Discharge Diagnosis\Comment: Seizure disorder with breakthrough GTCS Operations\Procedures: None Consultants: Tele neurology Complications: None Condition on DC: Stable Continued Medications: Levetiracetam (Levetiracetam) 750 Mg Tab.er.24h 4 TAB PO DAILY Discharge Summary: History of present illness: This is a 40-year-old male with past medical history of seizure disorder, apparently compliant with medication, as explained by his girlfriend, came to the ED after 4 episodes of witnessed GTCS at home. He had 1 episode of witnessed seizure in the ER, lasted 1-2 minutes. No tongue bite, involuntary micturition present. He received lorazepam 2 mg and Keppra 1500 IV in the ER. Hospital course: Patient was in postictal state for about 6-7 hours after the seizures. CT head ruled out any acute intra cranial process. Neurology was consulted, recommended adding lacosamide 100 mg p.o. b.i.d. along with his daily dose of Keppra 1500 p.o. b.i.d. patient was alert oriented and cooperative we will examining the next day. He gives history of occasional alcohol consumption, 1-2 beers a month with history of breakthrough seizures even with 1 beer. The patient has been adequately educated to avoid any quantity of alcohol and to be regular with the medication. No history of trauma, no history of infectious process, no history of new stressors in his life, no electrolyte abnormalities, no recordings of hyp oglycemia. He is hemodynamically stable and symptomatically better and hence being discharged with the following instructions. Vital Signs Date Time Temp Pulse Resp B/P (MAP) Pulse Ox O2 Delivery O2 Flow Rate FiO2 09/15/25 10:48 97.9 68 16 128/77 (94) 98 Room Air 09/15/25 08:00 0.0 Laboratory Tests Test 09/13/25 19:17 09/13/25 19:53 09/13/25 20:09 09/13/25 21:24 Lactic Acid Level 2.5 MMOL/L 1.3 MMOL/L Urine Specimen Description Cln catch midstream Urine Color Straw Urine Clarity Clear Urine pH 6.0 Urine Specific [place] 1.025 Urine Protein Trace mg/dl Urine Glucose (UA) Negative mg/dl Urine Ketones Negative mg/dl Urine Occult Blood Small Urine Nitrite Negative Urine Bilirubin Negative Urine Urobilinogen 0.2 E.U/dL Urine Leukocyte Esterase Negative Urine RBC None seen /HPF Urine WBC 0-4 /HPF Urine Squamous Epithelial Cells None seen /LPF Urine Amorphous Urates 1+ Urine Bacteria 4+ /HPF Urine Culture Indicated Indicated Volume Urine Centrifuged 10 ml Urine Comment Urine Opiates Screen Negative Urine Methadone Screen Negative Urine Fentanyl Screen Negative Urine Barbiturates Screen Negative Urine Phencyclidine Screen Negative Urine Amphetamines Screen Negative Urine Benzodiazepines Screen Positive Urine Cocaine Screen Negative Urine Cannabinoids Screen Positive Drug Screen Comment Test 09/14/25 06:19 09/15/25 06:32 White Blood Count 8.9 X10'3 7.5 X10'3 Red Blood Count 4.70 X10'6 5.28 X10'6 Hemoglobin 14.2 g/dl 16.2 g/dl Hematocrit 42.0 % 48.1 % Mean Corpuscular Volume 89.3 FL 91.0 FL Mean Corpuscular Hemoglobin 30.2 PG 30.8 PG Mean Corpuscular Hemoglobin Concent 33.8 g/dL 33.8 g/dL Red Cell Distribution Width 14.7 % 14.5 % Platelet Count 287 X10'3 230 X10'3 Mean Platelet Volume 8.5 FL 8.7 FL Neutrophils (%) (Auto) 70.4 % 60.2 % Lymphocytes (%) (Auto) 18.6 % 28.2 % Monocytes (%) (Auto) 10.6 % 10.7 % Eosinophils (%) (Auto) 0.1 % 0.5 % Basophils (%) (Auto) 0.3 % 0.4 % Neutrophils # (Auto) 6.3 X10'3 4.5 X10'3 Lymphocytes # (Auto) 1.7 X10'3 2.1 X10'3 Monocytes # (Auto) 0.9 X10'3 0.8 X10'3 Eosinophils # (Auto) 0.0 X10'3 0.0 X10'3 Basophils # (Auto) 0.0 X10'3 0.0 X10'3 CBC Comment Sodium Level 141 MMOL/L 140 MMOL/L Potassium Level 3.5 MMOL/L 3.8 MMOL/L Chloride Level 108 MMOL/L 105 MMOL/L Carbon Dioxide Level 26.2 MMOL/L 21.0 MMOL/L Anion Gap 7 14 Blood Urea Nitrogen 11 MG/DL 13 MG/DL Creatinine 1.29 MG/DL 1.17 MG/DL Estimated GFR/1.73 m2 61 ML/MIN 68 ML/MIN BUN/Creatinine Ratio 8.5 11.1 Glucose Level 101 MG/DL 94 MG/DL Calcium Level 8.8 MG/DL 9.1 MG/DL Magnesium Level 2.2 MG/DL 2.0 MG/DL Total Bilirubin 1.1 MG/DL 1.3 MG/DL Aspartate Amino Transf (AST/SGOT) 36 U/L 39 U/L Alanine Aminotransferase (ALT/SGPT) 37 U/L 37 U/L Alkaline Phosphatase 47 IU/L 48 IU/L Total Protein 7.5 G/DL 8.2 G/DL Albumin 3.8 G/DL 4.2 G/DL Globulin 3.7 G/DL 4.0 G/DL Albumin/Globulin Ratio 1.0 1.1 Triglycerides Level 77 MG/DL Cholesterol Level 169 MG/DL LDL Cholesterol 114 MG/DL HDL Cholesterol 46 MG/DL Cholesterol/HDL Ratio 3.7 Chemistry Comments Imaging: CT: No evidence of intracranial abnormality Chest x-ray: No acute cardiopulmonary disease Ultrasound: Overall LVEF is 65-70%. Normal LV size and wall thickness. Overall systolic function is normal. RV is mildly dilated in size with normal function. Trileaflet AV appears mildly sclerotic without stenosis or insufficiency. Mild MV annular calcification without stenosis. Trace regurgitation. TV appears structurally normal with mild regurgitation. Normal PV without stenosis, physiologic insufficiency. Normal pericardium. No effusion. Physical exam on discharge: General: Well alert, well oriented, not confused, not agitated, not in acute distress, well cooperated during the physical. HEENT: Conjunctive are pink, sclerae clear, no icterus, pupil is equal in both sides, reactive to light, no ear discharge, no pharyngeal erythema or an edema. Neck: Supple, no JVD, no lymphadenopathy and thyromegaly. Chest: Equal air entry on both lungs, no added sounds, no wheeze. Cardiovascular: S1-S2 regular sinus rhythm and, regular rate, no gallops, no rubs, no murmurs Abdomen: No visible peristalsis, Bowel sounds present on auscultation, soft, nontender, no guarding, no rigidity Extremities: No obvious deformities, no pitting edema bilaterally, capillary refill intact, peripheral pulsations are intact on both sides Central Nervous System: No focal neurological deficits, no motor or sensory weakness in all 4 extremities, could move all 4 extremities, 2+ deep tendon reflexes, negative Babinski. Musculoskeletal: No joint swelling, deformities, inflammations, and no scoliosis and back tenderness Skin: Warm and dry. Discharge instructions: You have been started on a new antiseizure medication Lacosamide 100 mg po bid. Take keppra 1500 mg po bid regularly follow up with PCP in one week. Avoid any quantity of alcohol. Visit ER immediately in case of any emergencies including seizure, headaches, syncope. *Problems/Diagnosis: (1) Seizures Status: Acute Total Time Spent on D/C: > 30 Minutes Counseling Services Smoking & Tobacco Cessation: N/A Date of Service: Sep 15, 2025 Billing Provider: OLMAN AYON MD Common Visit Codes: 18214-XNC/OBS DISCH DAY >30min ISMAEL MARTINEZ, RES Sep 15, 2025 17:38 OLMAN AYON MD Sep 16, 2025 06:30
[2025-09-15] MEDS ORDERED: LACO100T2 PO (18:41)
== END 2025-09-15 14:19 | disposition home or self-care (01) | DRG 53 ==
LOC: ER 15:08 → ED HOLD 17:10 → PCU 3S 20:50
PROVIDERS: ADMIT Internal Medicine; ATTEND Internal Medicine
DX: G40.901 Epilepsy, unspecified, not intractable, with status epilepticus (principal); N17.9 Acute kidney failure, unspecified; E11.9 Type 2 diabetes mellitus without complications; F41.0 Panic disorder [episodic paroxysmal anxiety]; Z88.8 Allergy status to other drugs, medicaments and biological substances; Z91.148 Patient's other noncompliance with medication regimen for other reason
CPT/HCPCS: 36415; 70450; 71045; 80048; 80053; 80061; 80177; 80305; 81001; 82948; 83605; 83735; 84145; 85025; 86140; 87081; 87088; 93005; 93306; 99291; G0378; J1200; J1630; J1644; J1953; J2060; J3360; J7030